=== PATIENT | female | born 1970 ===

== ENCOUNTER 2025-04-21 11:07 | Outpatient (AMB) | payer OTHER, SELFPAY ==
--- OUTSIDE RECORDS SUMMARY | 2024-12-05 04:15 | XMS_ITS | Continuity of Care Document ---
Author Organization [facility] Address [address] [place] [address] [address] [place] [address] Phone Care Team Providers Care Neurosurgery Research Director Name Role Phone Ambrose JOHNSTON, LASHONDA, BARNEY, Ignacio Unavailable U navailable Procedures Procedure Date Duplex Scan-extrem Veins; Comp- CT & [place] Advance Directives Directive Yes / No Effective Date File Name No Information Encounters Encounter Description Practice Location Reason(s) For Visit Diagnoses Date Provider Providers Copied on Encounter [facility], [address], [place], [id number], [place] tel:[phone] [facility] - [place] Pain in right legPain in left leg 5 Ambrose JOHNSTON, LASHONDA, BARNEY [place]. [address] [place] [address], [place], [place], [id number] , [place]. tel:[phone] Referring Provider: Zion Nelson MD J, [facility] [address], [address]. tel:[phone] Family History Family Member Type Diagnosis Age At Onset No Information Payers Payer name Insurance type Covered republican ID Scot liang(s) [facility] [id number] Social History Type Description Quantity Date Captured Comments Sex Female Smoking Status No Information Chief Complaint And Reason For Visit No Information Reason For Referral Reason For Referral No Information History Of Present Illness Encounter Date Complaint History Of Prese nt Illness No Information Functional Status Date Functional Assessmen t No Information Instructions Date Instruction Additional Infor mation No Information Assessments Type Assessment Date No Information Patient Care Teams Name Effective Dates (start - stop) Status Members No Information
--- NOTE | 2025-04-21 11:19 | HO.NEPHOV_ITS ---
Vital Signs 04/21/25 11:20 Height 5 ft 6 in Weight 172 lb BMI 27.8 BP 128/82 Blood Pressure Location Lt brachial Position Sitting Pulse 93 Pulse Source Pulse Oximeter Pulse Oximetry (%) 99 Oxygen Delivery Method Room Air Intake Visit Reasons: Ext Calculus of Kidney/Ureter,conf. Automatic Punch Press Operator Required: No Accompanied by: Self / Same As Patient Allergies No Known Allergies Allergy (Verified 04/21/25 11:23) Medication List - Last Reconciled 04/21/25 by Bautista Inman MD cholecalciferol (vitamin D3) 25 mcg PO DAILY gabapentin 100 mg PO TID hydrochlorothiazide 25 mg PO DAILY omeprazole 40 mg PO DAILY potassium citrate ER 10 mEq PO TID risankizumab-rzaa (Skyrizi) mg subcut .2xmonthly HPI Comments Details: The patient is a 54-year-old female presenting with nephrolithiasis. She has a 20-year history of kidney stones, which often do not pass naturally and require surgical intervention. The stones frequently become lodged in the urinary tract, leading to infections and necessitating hospitalization for removal via laser or stent placement. The patient was recently diagnosed with Crohn's disease following persistent diarrhea and abdominal discomfort post-cholecystectomy two years ago. A CT scan and colonoscopy revealed inflammation in the small intestine, leading to the diagnosis. She is currently managing the condition with medication, including self-administered injections. The patient underwent a cholecystectomy two years ago, after which she experi enced significant gastrointestinal symptoms, including diarrhea shortly after eating. Her primary care physician initially attributed these symptoms to the body's adjustment to the absence of the gallbladder. [facility] Medical History (Updated 04/21/25 @ 11:45 by Bautista Inman MD) Kidney stone UTI (urinary tract infection) Crohn's disease Sepsis Hydroureteronephrosis Review of Systems Const Denies fever(s) and Denies weight loss Card Denies chest pain Resp Denies cough and Denies hemoptysis GI Denies abdominal pain, Denies diarrhea and Denies nausea Musc Denies back pain Neuro Denies focal weakness Physical Exam Vital Signs: Last Vital Signs Pulse 93 04/21/25 11:20 BP 128/82 04/21/25 11:20 Pulse Ox 99 04/21/25 11:20 Oxygen Delivery Method Room Air 04/21/25 11:20 BMI result Body Mass Index 27.8 Comfortable Neck supple no JVD. Lungs entry equal no rales. Heart S1-S2 heard no gallop or rub. Abdomen soft nontender. Neuro alert awake oriented. No asterixis. Extremities no edema. Results Reviewed Results Reviewed: All results reviewed Twenty-four urine collection reviewed Volume 2400 cc. Sodium excretion 338. Mild hypercalciuria Assessment & Plan Assessment & Plan (1) Kidney stone: Code(s): N20.0 - Calculus of kidney Category: Medical Plan 1. Nephrolithiasis recurrent renal stones. She needs metabolic workup and I have initiated the same. - Continue monitoring sodium and calcium intake, aiming for a low sodium diet of 2000 mg per day. - Maintain high fluid intake to ensure urine output of at least 2 liters per day. - Avoid black tea and limit red meat consumption to reduce urine acidity. - Follow up in three weeks with repeat 24-hour urine collection to assess sodium, calcium, and oxalate levels. 2. Crohn's Disease - Continue current medication regimen, including self-administered injections. - Monitor symptoms and report any exacerbations to the healthcare provider. Orders: Orders Sodium, 24Hr Urine Group 2 Weeks N20.0 - Calculus of kidney Creatinine, 24 Hr Group 2 Weeks N20.0 - Calculus of kidney Oxalate, 24 Hr 2 Weeks N20.0 - Calculus of kidney Citric Acid 24hr Urine 2 Weeks N20.0 - Calculus of kidney Calcium, 24 Hr Ur 2 Weeks N20.0 - Calculus of kidney Uric Acid, 24Hr Urine Group 2 Weeks N20.0 - Calculus of kidney Parathyroid Hormone Intact 2 Weeks N20.0 - Calculus of kidney Phosphorus 2 Weeks N20.0 - Calculus of kidney Uric Acid 2 Weeks N20.0 - Calculus of kidney Patient Instructions: - Follow a low sodium diet, aiming for less than 2000 mg per day. - Drink plenty of water to produce at least 2 liters of urine daily. - Avoid black tea and limit red meat to reduce urine acidity. - Continue current medications and report any worsening symptoms. - Return for follow-up in three weeks with completed 24-hour urine collection. Coding Level of Care Code New Pt Level 4 (59708) Diagnoses Kidney stone N20.0
[2025-04-21 11:20] VITALS: BP 128/82; PULSE 93; O2SAT 99; BMI 27.8
--- OUTSIDE RECORDS SUMMARY | 2025-04-21 12:39 | XMS_ITS | Encounter Summary ---
Author Organization [facility] Address [address] [place], [place] [id number] Phone Care Team Providers Care Lecturer Of Portuguese Name Role Phone Zion Nelson MD Primary Care Provid er Reason for Referral * Consultation (Within 2 weeks) - New Request Specialty Diagnoses / Procedures Referred By Contarmen t Referred To Contact Infectious Diseases Diagnoses Abnormal microbiological findings in specimens from digestive organs and abdominal cavity Zion Nelson MD [address] [address] Phone: tel: fax: [facility] [address] [place] [address] Phone: tel: Referral ID Status Reason Start Date Expiration Date V isits Requested Visits Authorized [id number] New Request 04/18/2025 04/18/2026 1 1 Encounter Details Date Type Department Care Team (Latest Contact Info) Description 04/18/2025 Transcribe Orders [facility] Infectious Diseases [address] [place] [address] Zion Nelson MD [address] [address] Abnormal microbiological findings in specimens from digestive organs and abdominal cavity (Primary Dx) Social History Tobacco Use Types Packs/Day Years Used Date Smoking Tobacco: Never Assessed Education Answer Date Recorded Are you interested in more education? Not on seth e 04/18/2025 Are you concerned about learning? Not on file 04/18/2025 No 04/18/2025 No 04/18/2025 Digital Access Answer Date Recorded No 04/18/2025 No 04/18/2025 Reliable internet access at home? Not on file 04/18/2025 Device with a working camera? Not on file Comments Unknown Sex and Gender Information Value Date Recorded Sex Assigned at Not on file Legal Sex Female 10:29 AM EDT Gender Identity Not on file Sexual Orientation Not on file documented as of this encounter Plan of Treatment Upcoming Encounters Date Type Department Care Team (Late st Contact Info) Description 07/13/2025 8:00 AM EST Office Visit [facility] Infectious Diseases [address] [place] [address] William Morris MD [address] [facility], [address]nd [place] [address] Scheduled Referrals Name Type Priority Associated Diagnoses Orde r Schedule Ambulatory referral to [facility] Infectious Disease Outpatient Referral Routine Abnormal microbiological findings in specimens from digestive organs and abdominal cavity Ordered: 04/18/2025 documented as of this encounter Visit Diagnoses Diagnosis Abnormal microbiological findings in specimens from digestive organs and abdominal cavity- Primary documented in this encounter Care Teams Lecturer Of Portuguese Relationship Specialty Start Date End Date Zion Nelson MD [address] [facility] [address] [place] [phone] PCP - General Pediatrics 04/13/25 documented as of this encounter Additional Source Comments The information contained in this document represents components of the legal health record. It is not the complete legal health record.[facility]
--- OUTSIDE RECORDS SUMMARY | 2025-04-21 12:40 | XMS_ITS | Encounter Summary ---
Author Organization [facility], Address [address] [place] [address] Phone Care Team Providers Care Community Development Director Name Role Phone Zion Nelson MD Primary Care Provider [phone] Encounter Details Date Type Department Care Team (Late st Contact Info) Description 12/04/2021 Documentation Only [facility], [address] [address] Aki Matute MD [address] [place] [address] Social History Tobacco Use Types Packs/Day Years Used Date Smoking Tobacco: Never Smokeless Tobacco: Never Comments Unknown Sex and Gender Information Value Date Recorded Sex Assigned at Not on file Legal Sex Female 2:55 PM EST Gender Identity Not on file Sexual Orientation Not on file documented as of this encounter Plan of Treatment Not on file documented as of this encounter Visit Diagnoses Not on filedocumented in this encounter Care Teams Community Development Director Relationship Specialty Start Date End Date Zion Nelson MD [address] [facility] [address] [place], [place] PCP - General Internal Medicine 05/16/20 documented as of this encounter
--- OUTSIDE RECORDS SUMMARY | 2025-04-21 12:40 | XMS_ITS | Encounter Summary ---
Author Organization [facility], Address [address] [place] [address] Phone Care Team Providers Care Ophthalmic Technologist Name Role Phone Zion Nelson MD Primary Care Provider [phone] Encounter Details Date Type Department Care Team (Late st Contact Info) Description 08/22/2021 Documentation Only [facility], [address] [place] [address] Aki Matute MD [address] [place] [address] Social History Tobacco Use Types Packs/Day Years Used Date Smoking Tobacco: Never Assessed Comments Unknown Sex and Gender Information Value Date Recorded Sex Assigned at Not on file Legal Sex Female 2:55 PM EST Gender Identity Not on file Sexual Orientation Not on file documented as of this encounter Plan of Treatment Not on file documented as of this encounter Visit Diagnoses Not on filedocumented in this encounter Care Teams Ophthalmic Technologist Relationship Specialty Start Date End Date Zion Nelson MD [address] [facility] [address] [place], [place] PCP - General Internal Medicine 05/16/20 documented as of this encounter
--- OUTSIDE RECORDS SUMMARY | 2025-04-21 12:40 | XMS_ITS | Clinical Summary ---
Author Organization [facility] Address [address] [place] [address] Phone Care Team Providers Care Human Resources Operations Specialist Name Role Phone Zion Nelson MD Primary Care Provider Allergies Active Allergy Reactions Criticality Noted Date Comments Allergies Not On File Unknown 09/02/2012 Medications potassium citrate (UROCIT-K) 10 mEq (1,080 mg) CR tablet TAKE 2 TABS BY MOUTH DAILY 4 Active omeprazole (PriLOSEC) [address] capsule Take 1 capsule (40 mg total) by mouth 1 (one) time each day. Active naproxen (NAPROSYN) 500 mg tablet TAKE 1 TABLET BY MOUTH TWICE A DAY FOR 10 DAYS, FOR MUSCLE PAIN. 4 Active meloxicam (MOBIC) 15 mg tablet Take 1 tablet (15 mg total) by mouth 1 (one) time each day. 4 Active hydrocortisone (ANUSOL-HC) 2.5 % rectal cream APPLY SPARINGLY TO AFFECTED AREA 2 TO 4 TIMES A DAY 5 Active hydroCHLOROthia zide (HYDRODIURIL) 25 mg tablet Take 1 tablet (25 mg total) by mouth 1 (one) time each day. 3 Active cholecalciferol (VITAMIN D-3) 25 mcg (1,000 unit) capsule Take 1 capsule (1,000 Units total) by mouth 1 (one) time each day. Active Active Problems Problem Noted Date Diagnosed Date Gastroesophageal reflux disease without esophagi tis 09/09/2024 Bursitis 09/09/2024 Encounters Date Type Department Care Team Description 04/21/2025 Telephone Infectious Disease - [place] [address] [facility] [address] [place] [address] Mya Carty RN from Last 3 Months Surgical History Surgery Date Site/Laterality Comments COLONOSCOPY 05/22/2023 - 06/21/2023 [facility] (10 yr) CHOLECYSTECTOMY ESOPHAGOGASTRODUODENOSCOPY 05/22/2023 - 06/21/2023 unremarkable ([facility]) Social History Tobacco Use Types Packs/Day Years Used Date Smoking Tobacco: Never Tobacco Cessation:Counseling Given: Not Answered Alcohol Use Standard Drinks/Week Comments Not Currently 0 (1 standard drink = 0.6 oz pur e alcohol) Comments No Sex and Gender Information Value Date Recorded Sex Assigned at Not on file Legal Sex Female 2:59 AM EST Gender Identity Not on file Sexual Orientation Not on file Obstetrics History Para Term AB IAB SAB Ectopic Multiple Livin g Live Births 3 Last Filed Vital Signs Vital Sign Reading Time Taken Comments Blood Pressure 153/90 12/14/2024 2:23 PM EDT Pulse 85 12/14/2024 2:23 PM EDT Temperature 35.8 C (96.4 F) 12/14/2024 2:23 PM EDT Respiratory Rate - - Oxygen Saturation 98% 12/14/2024 2:23 PM EDT Inhaled Oxygen Concentration - - Weight 74.8 kg (165 lb) 12/14/2024 2:23 PM EDT Height 167.6 cm (5' 6 ) 09/09/2024 1:42 PM EDT Body Mass Index 26.63 09/09/2024 1:42 PM EDT Plan of Treatment Upcoming Encounters Date Type Department Care Team (Late st Contact Info) Description 05/27/2025 8:15 AM EST Appointment [facility] [address] [place] [address] Health Maintenance Due Date Last Done Comments Colorectal Cancer Screening: Colonoscopy 1972 Hepatitis A Vaccines (1 of 2 - Risk 2-dose series) 12/28/1991 Cervical Cancer Screening: Pap Smear 1993 Cholesterol Screening (Lipid Panel) 05/25/2022 HIV Screening 05/25/2022 Hepatitis C Screening 05/25/2022 Social Influencers of Health Screening 05/25/2022 RSV Immunization Adult Patients (1 - Risk 50-74 years 1-dose series) 2022 Depression Screening 06/22/2024 Hepatitis B Vaccines (2 of 2 - CpG 2-dose series) 10/13/2024 09/15/2024 Breast Cancer Screening 05/14/2026 05/14/20 24, 09/15/2022, 07/13/2021, Additional history exists DTaP,Tdap,and Td Vaccines (3 - Td or Tdap) 04/07/2029 04/07/2019, 10/16/2014 Pneumococcal Vaccine: 50+ Years Completed 09/15/2024 Zoster Vaccines Completed 01/03/2025, 09/15/2024 COVID-19 Vaccine Completed 03/30/2025, , 05/18/2021, Additional history exists Influenza Vaccine Completed 03/30/2025, , 07/16/2023, Additional history exists HIB Vaccines Aged Out No longer eligi ble based on patient's age to complete this topic HPV Vaccines Aged Out No longer eligi ble based on patient's age to complete this topic IPV Vaccines Aged Out No longer eligi ble based on patient's age to complete this topic MMR Vaccines Aged Out No longer eligi ble based on patient's age to complete this topic Meningococcal ACWY Vaccine Aged Out N o longer eligible based on patient's age to complete this topic Meningococcal B Vaccine Aged Out No l onger eligible based on patient's age to complete this topic RSV Immunization Patients Under 20 months Aged Out No longer eligible based on patient's age to complete this topic Varicella Vaccines Aged Out No longer eligible based on patient's age to complete this topic Procedures Procedure Name Priority Date/Time Associated Diagnosis Comments OVA AND PARASITE EXAMINATION Routine 04/05/2025 8:05 AM EDT Regional enteritis of small intestine with large intestine (CMS/HCC V24, CMS/[facility] V28) GASTROINTESTINAL PATHOGENS BY PCR Routine 04/05/2025 8:05 AM EDT Regional enteritis of small intestine with large intestine (CMS/HCC V24, CMS/HCC V28) CULTURE BLOOD Routine 03/22/2025 2:24 PM EDT Regional enteritis of small intestine with large intestine (CMS/[facility] V24, CMS/[facility] V28) CULTURE BLOOD Routine 01/20/2025 10:18 AM EDT Microscopic colitis, unspecified microscopic colitis type BLOOD PARASITE SMEAR Routine 01/20/2025 10:18 AM EDT Parasitosis MG MAMMO DIGITAL SCREENING W VAZQUEZ BILAT Routine 05/14/2024 8:38 AM EST Visit for screening mammogram from Last 3 Months or Most Recently Relevant to Health Maintenance Results * Gastrointestinal pathogens molecular study (04/05/2025 8:05 AM EDT) Campylobacter Detection by PCR Not Detected Not Detected LAB MICROBIOLOGY METHOD 5 10:30 AM EDT [facility] Plesiomonas shigelloides Detection by PCR Not Detected Not Detected LAB MICROBIOLOGY METHOD 5 10:30 AM EDT [facility] Salmonella Detection by PCR Not Detected Not Detected LAB MICROBIOLOGY METHOD 5 10:30 AM EDT [facility] Vibrio Detection by PCR Not Detected Not Detected LAB MICROBIOLOGY METHOD 5 10:30 AM EDT [facility] Vibrio cholerae Detection by PCR Not Detected Not Detected LAB MICROBIOLOGY METHOD 5 10:30 AM EDT [facility] Yersinia enterocolitica Detection by PCR Not Detected Not Detected LAB MICROBIOLOGY METHOD 5 10:30 AM EDT [facility] Enteroaggregative E coli EAEC Detection by PCR Not Detected Not Detected LAB MICROBIOLOGY METHOD 5 10:30 AM EDT [facility] Enteropathogenic E coli EPEC Detection Not Detected Not Detected LAB MICROBIOLOGY METHOD 5 10:30 AM EDT [facility] Enterotoxigenic E coli ETEC LTST Detection Not Detected Not Detected LAB MICROBIOLOGY METHOD 5 10:30 AM EDT [facility] Shiga-like toxin producing E coli STEC STX1 STX2 Det Not Detected Not Detected LAB MICROBIOLOGY METHOD 5 10:30 AM EDT [facility] Shigella Enteroinvasive E coli EIEC Detection Not Detected Not Detected LAB MICROBIOLOGY METHOD 5 10:30 AM EDT [facility] Cryptosporidium Detection by PCR Not Detected Not Detected LAB MICROBIOLOGY METHOD 5 10:30 AM EDT [facility] Cyclospora cayetanensis Detection by PCR Not Detected Not Detected LAB MICROBIOLOGY METHOD 5 10:30 AM EDT [facility] Entamoeba histolytica Detection by PCR Not Detected Not Detected [facility] Giardia lamblia Detection by PCR Not Detected Not Detected LAB MICROBIOLOGY METHOD 5 10:30 AM [facility] Adenovirus F 40 41 Detection by PCR Not Detected Not Detected LAB MICROBIOLOGY METHOD 5 10:30 AM [facility] Astrovirus Detection by PCR Not Detected Not Detected LAB MICROBIOLOGY METHOD 5 10:30 AM [facility] Norovirus GI GII Detection by PCR Not Detected LAB MICROBIOLOGY METHOD 5 10:30 AM EDT [facility] Sapovirus Detection by PCR Not Detected Not Detected LAB MICROBIOLOGY METHOD 5 10:30 AM [facility] Rotavirus A Detection by PCR Not Detected Not Detected LAB MICROBIOLOGY METHOD 5 10:30 AM [facility] Stool Rectum structure / Unknown Non-blood Collection / Unknown 04/05/2025 8:05 AM EDT 04/05/2025 8:19 AM EDT [facility] - 04/05/2025 10:30 AM EDT PCR testing is much more sensitive than traditional techniques and allows for the detection of low numbers of stool pathogens. The clinical correlation of PCR results with the need for treatment and clinical outcomes has not been established. Therefore the results of PCR testing for stool pathogens must be taken into clinical context when making treatment decisions. This is a diagnostic test only, repeat testing for cure is not advised. You may consider infectious disease consult for additional guidance. Testing Performed by [facility] Radhika Lang MD LAB MICROBIOLOGY - GENERA L ORDERABLES Final Result Performing Organization Address [facility] Co de Phone Number [facility] [address] [place] [address], [place] [phone] * Ova and parasite examination (04/05/2025 8:05 AM EDT) Ova and Parasite No Ova or Parasite seen. 04/11/2025 11:50 AM EDT [facility] Stool Stool / Unknown Non-blood Collection / Unknown 04/05/2025 8:05 AM EDT 04/05/2025 8:19 AM EDT Narrative [facility] - 04/11/2025 11:50 AM EDT Special test request required for Coccidia and Microsporidia. Radhika Lang MD LAB MICROBIOLOGY - GENERA L ORDERABLES Final Result Performing Organization Address [facility] de Phone Number [facility] [address] [place] [address], [place] [phone] * Culture blood (03/22/2025 2:24 PM EDT) Only the most recent of2 resultswithin the time period is included. Culture, Blood No growth at 5 days LAB MICROBIOLOGY METHOD 03/27/2025 4:01 PM EDT [facility] Blood Venous blood specimen / Unknown Venipuncture / Unknown 03/22/2025 2:24 PM EDT 03/22/2025 3:24 PM EDT Radhika Lang MD LAB MICROBIOLOGY - GENERA L ORDERABLES Final Result Performing Organization Address [facility]/ZIP Co de Phone Number [facility] [address] [place] [address], [place] [phone] * Blood parasite smear (01/20/2025 10:18 AM EDT) Preliminary Thin Smear No Parasite Seen No Parasite Seen 01/21/2025 10:42 AM EDT [facility] Thick Smear No Parasite Seen No Parasite Seen 01/21/2025 10:42 AM EDT [facility] Comment:This is an appended report. These results have been appended to a previously preliminary verified report. Blood Venous blood specimen / Unknown Venipuncture / Unknown 01/20/2025 10:18 AM EDT 01/20/2025 11:32 AM EDT Karma Meza MD LAB MICROBIOLOGY - GENERAL ORDER ALISSA Final Result Performing Organization Address [facility] Co de Phone Number [facility] [address] [place] [address], * MG Mammo Digital Screening w Vazquez bilat (05/14/2024 8:38 AM EST) Anatomical Region Laterality Modality Breast Bilateral Mammography 05/16/2024 10:2 6 AM EST Impressions 05/16/2024 10:28 AM EST Stable mammographic appearance of the breasts. No evidence of malignancy is seen. A negative mammogram in the presence of a clinically suspicious palpable abnormality does not preclude the possibility of malignancy or alter the indications for biopsy. BI-RADS CATEGORY: 2 - BENIGN RECOMMENDATION: Screening bilateral mammogram is recommended in 1 year. Mammo Location: [facility], [address] [place] [address], [id number], . -------- FINAL REPORT -------- Dictated By: Nallely Craig Dictated Date: 05/16/2024 10:26 ET Assigned Physician: Nallely Craig Reviewed and Electronically Signed By: Nallely Craig Signed Date: 05/16/2024 10:28 ET Workstation ID: [id number] Transcribed By: Self Edit Transcribed Date: 05/16/2024 10:26 ET Narrative 05/16/2024 10:28 AM EST HISTORY: Screening. Right breast biopsy in 2004, pathology benign. COMPARISON: 09/13/22, 07/13/21, 07/24/18 TECHNIQUE: Bilateral digital breast tomosynthesis was performed in the CC and MLO projections. Computer aided detection with [employer] AI 3D 3.1 was employed. BREAST DENSITY: B - There are scattered areas of fibroglandular density. FINDINGS: No suspicious masses, grouped microcalcifications, or areas of architectural distortion are seen. There are rare benign appearing microcalcifications, unchanged from the previous studies. The skin and vascularity are unremarkable. Procedure Note Nallely Craig MD - 05/16/2024 HISTORY: Screening. Right breast biopsy in 2004, pathology benign. COMPARISON: 09/13/22, 07/13/21, 07/24/18 TECHNIQUE: Bilateral digital breast tomosynthesis was performed in the CCand MLO projections. Computer aided detection with iCAD ProFound AI 3D 3.1was employed. BREAST DENSITY: B - There are scattered areas of fibroglandular density. FINDINGS: No suspicious masses, grouped microcalcifications, or areas ofarchitectural distortion are seen. There are rare benign appearingmicrocalcifications, unchanged from the previous studies. The skin andvascularity are unremarkable. IMPRESSION: Stable mammographic appearance of the breasts. No evidence of malignancyis seen. A negative mammogram in the presence of a clinically suspicious palpableabnormality does not preclude the possibility of malignancy or alter theindications for biopsy. BI-RADS CATEGORY: 2 - BENIGN RECOMMENDATION: Screening bilateral mammogram is recommended in 1 year. Mammo Location: [facility], [address] [place] [address], [address], . -------- FINAL REPORT -------- Dictated By: Nallely Craig Dictated Date: 05/16/2024 10:26 ET Assigned Physician: Nallely Craig Reviewed and Electronically Signed By: Nallely Craig Signed Date: 05/16/2024 10:28 ET Workstation ID: [id number] Transcribed By: Self Edit Transcribed Date: 05/16/2024 10:26 ET Zion Nelson MD IMG BI PROCEDURES Final Res ult from Last 3 Months or Most Recently Relevant to Health Maintenance Insurance [facility] Care Teams Human Resources Operations Specialist Relationship Specialty Start Date End Date Zion Nelson MD [facility] [address] PCP - General Internal Medicine 01/20/25
--- OUTSIDE RECORDS SUMMARY | 2025-04-21 12:40 | XMS_ITS | Encounter Summary ---
Author Organization [facility], Address [address] [place] [address] Phone Care Team Providers Care Electrician Marine Name Role Phone Zion Nelson MD Primary Care Provider [phone]- [phone] Encounter Details Date Type Department Care Team (Late st Contact Info) Description 12/04/2021 Documentation Only [facility], [address] [place] [address] Aki Matute MD [address] [facility] [address] [place] [address] Social History Tobacco Use Types Packs/Day Years [...] on filedocumented in this encounter Care Teams Electrician Marine Relationship Specialty Start Date End Date Zion Nelson MD [address] [facility] [address] [place], [place] PCP - General Internal Medicine 05/16/20 documented as of this encounter
--- OUTSIDE RECORDS SUMMARY | 2025-04-21 12:40 | XMS_ITS | Encounter Summary ---
Author Organization [facility], Address [address] [place] [address] Phone Care Team Providers Care Senior Database Programmer Name Role Phone Zion Nelson MD Primary Care Provider [phone]- [phone] Encounter Details Date Type Department Care Team (Late st Contact Info) Description 08/22/2021 Documentation Only [facility], [address] [place] [address] Aki Matute MD [address] [place] [address] Social History Tobacco Use Types Packs/Day Years [...] on filedocumented in this encounter Care Teams Senior Database Programmer Relationship Specialty Start Date End Date Zion Nelson MD [address] [facility] [address] [place], [place] PCP - General Internal Medicine 05/16/20 documented as of this encounter
--- OUTSIDE RECORDS SUMMARY | 2025-04-21 12:40 | XMS_ITS | Encounter Summary ---
Author Organization [facility] Address [address] [place] [address] Phone Care Team Providers Care Salvage Mend Worker Name Role Phone Zion Nelson MD Primary Care Provider [phone]- [phone] Encounter Details Date Type Department Care Team ([facility] st Contact Info) Description 11/13/2023 Documentation Only [facility], [address] [place] [address] Nadir [place], [place] [address] [place] [address] Social History Tobacco Use Types Packs/Day Years [...] on filedocumented in this encounter Care Teams Salvage Mend Worker Relationship Specialty Start Date End Date Zion Nelson MD [address] [facility] [address] [place], [place] PCP - General Internal Medicine 05/16/20 documented as of this encounter
--- OUTSIDE RECORDS SUMMARY | 2025-04-21 12:40 | XMS_ITS | Encounter Summary ---
Author Organization [facility], Address [address] [place] [address] Phone Care Team Providers Care Child Welfare Consultant Name Role Phone Zion Nelson MD Primary Care Provider [phone]- [phone] Encounter Details Date Type Department Care Team (Late st Contact Info) Description 01/13/2023 Documentation Only [facility], [address] [place] [address] Aki Matute MD [address] [facility] [place] [address] Social History Tobacco Use Types Packs/Day Years [...] on filedocumented in this encounter Care Teams Child Welfare Consultant Relationship Specialty Start Date End Date Zion Nelson MD [address] [facility] [address] [place], [place] PCP - General Internal Medicine 05/16/20 documented as of this encounter
--- OUTSIDE RECORDS SUMMARY | 2025-04-21 12:40 | XMS_ITS | Data Portability ---
Author Organization [facility], Main Office Address [address] [facility] [address] [place] [id number] Care Team Providers Care Waste Baler Name Role Phone KAMILLE NELSON Primary Care Provider JUAN DIEGO BLOOD Mountain Bike Guide GRACIELA SCOTT Piggyback Clerk CLAYTON LUA Urologist JAMES VERDIN Urologist CLAUDIA MAHAJAN Referring Provider Assessment No assessment recorded. Plan of Treatment Reminders Order Date Submit Date Provider Last Modified By Organization Details Last Modified Time Details Appointments PE EST 2025 10:00A M Kamille jauregui MD Not available Not available Not available Lab CBC w/ auto diff 2024 025 [email or web address] [facility] (Centralized Electronic Ordering - All Locations), Patient Can Go To The Location Of Their Choice, 02/07/2025 16:40:12 iron + TIBC + ferrit in, serum 2024 025 [email or web address] [facility] (Centralized Electronic Ordering - All Locations), Patient Can Go To The Location Of Their Choice, 02/07/2025 16:40:12 cobala min and folate panel, serum 2024 025 [email or web address] [facility] (Centralized Electronic Ordering - All Locations), Patient Can Go To The Location Of Their Choice, [id number] 02/07/2025 16:40:12 iron + total iron-b inding capaci ty (TIBC) , serum 2024 025 [email or web address] [facility] (Centralized Electronic Ordering - All Locations), Patient Can Go To The Location Of Their Choice, [address] 02/07/2025 16:40:12 unlist ed lab - GI parasi hipolito, stool, PCR 2024 025 CRISTOFER [facility] (Centralized Electronic Ordering - All Locations), Patient Can Go To The Location Of Their Choice, [id number] 12/06/2024 20:06:01 Referral nephro logist referr jaleel shetty kidney stones increa sing in freque ncy despit e being on meds. 2024 025 [facility] Nephrology - [address] Rojas, [place], [address], 04/17/2025 11:41:59 gastro entero logist referr al 2024 [facility] Cezar Nugent, [address] [place] [address], [address], 12/29/2024 08:36:22 Procedures None record ed. Surgeries None record ed. Imaging MRI, brain, w/wo contra st - New onset of daily persis tent headac hes in adult >57 year old on immuno suppre ssant medica tion. MRI indica peter for r/o of mass. 2024 025 [facility] [address] [place], [address], 04/18/2025 13:56:34 XR, cervic al spine, 2 or 3 view - New daily persis tent headac hes. Obtain ing Xray of c spine to evalua te for possib le cervic ogenic etiolo gy 2024 025 [facility], [address] [place], [address], 04/17/2025 10:40:50 US, duplex , venous , lower extrem ity - Bilate ral leg edema, r/o DVT 2024 [address] [facility] Vein [facility], [address], [address], [place], [address], 12/06/2024 16:18:29 Medication Orders hydroc hlorot hiazid e 25 mg tablet 2024 025 [facility]armacy #[id number], [address] [facility] [place], [address], 04/13/2025 13:32:32 ferrou s sulfat e 325 mg (65 mg iron) tablet 2024 025 [facility] #[id number], [address] [facility] [place], [address], 02/07/2025 17:04:49 gabape ntin 100 mg capsul e 2024 025 [email or web address] s [facility]/Pharmacy #[id number], [address] [place], [address], 04/13/2025 13:10:30 Patient TargetsNo targets recorded. Patient Instructions Encounter Date Encounter Id Patient Instructions Last Modified By Organization Details Last Modified Time 12/22/2024 [id number] take gabapentin at night x 3 nights, then twice daily x 3 days, then 3 times daily [email or web address] Not available 12/22/2024 16:10:32 Follow up if no improvement or if symptoms worsen. [email or web address] Not available 12/22/2024 16:06:50 02/01/2025 [id number] I have reviewed the note and agree with the assessment and plan of care. [email or web address] Not available 02/01/2025 09:04:53 02/07/2025 [id number] kidney stone: care instructions [email or web address] Not available 02/07/2025 17:04:46 crohn's disease: care instructions [email or web address] Not available 02/07/2025 17:18:14 anemia: care instructions [email or web address] Not available 02/07/2025 16:40:13 At [facility] follow up visit, all current and discharge medications (OTC, herbal therapies, supplements) reviewed and reconciled with patient and or caregiver, including potential side effects, drug interactions, instructions, and the consequences of not taking medication. Reviewed potential barriers to medication adherence, such as side effects from medication or cost of medication. [email or web address] Not available 02/07/2025 15:51:32 04/13/2025 [id number] kidney stone: care instructions [email or web address] Not available 04/13/2025 13:32:31 Reason for Referral Head Waiter/Waitress Banquet Referral for Parasitic disease Referring Physician: Yovany Pineda, Internal Medicine, Encounter Date: 12/22/2024 Metal Wire Technician Referral for Ca lculus of kidney and ureter Chronic kidney stones increasing in frequency despite being on meds. Referring Physician: Kamille Nelson, Family Medicine, Encounter Date: 02/07/2025 Results Created Date Observation Date Name Description Value Unit Range Abnormal Flag Note LastModifiedBy Organization Detail LastModifiedTime 12/11/1912/09/2024 CULTU RE URINE culture, urine 10,00 0-49, 000 CFU/m L Mixed uroge nital perla , no uropa thoge ns prese nt. Sugge st repea t speci men if clini mariah indic ated. Not Available [facility] U/S Dept [address] [place], [address], 12/10/2024 11:09:21 12/11/19 25 12/10/2024 CULTU RE URINE .note SEE NOTE Origi nal Order ing Provi valentina: ISRAE L GOHOH O [facility] Labor atory - [address] [facility], [place] kong d, [place] [address] Not Available [facility] Dept [address] [facility], [address], 12/10/2024 11:09:21 01/26/20 25 01/20/2025 CULTU RE BLOOD culture, blood No growth at 5 days Not Available [facility] U/S Dept [address] [facility], [address], 01/25/2025 13:03:28 01/26/20 25 01/25/2025 CULTU RE BLOOD .note See Note Origi nal Order ing Provi valentina: GHASSAN ROD KAYLAN [facility] - Labor atory - [address] [facility], Hein diaiel d, [place] [facility] [place] [address] Not Available [facility] Dept [address] [place] [address] [place], [address], 01/25/2025 13:03:28 01/23/20 25 01/20/2025 CULTU RE BLOOD culture, blood No growth at 2 days Not Available [facility] [address] [place] [address] [place], [address], 01/22/2025 13:02:48 01/23/20 25 01/22/2025 CULTU RE BLOOD .note See Note Origi nal Order ing Provi valentina: GHASSAN ROD KAYLAN [facility] - Labor atory - [address] [facility], Michael kong d, [facility] [place] [address] Not Available [facility]/ Dept [address] [facility] [place], [address], 01/22/2025 13:02:48 01/22/20 25 01/20/2025 CULTU RE BLOOD culture, blood No growth at 24 hours Not Available [facility]/ Dept [address] [facility] [place], [address], 01/21/2025 13:03:21 01/22/20 25 01/21/2025 CULTU RE BLOOD .note See Note Origi nal Order ing Provi valentina: GHASSAN ROD KAYLAN [facility] - Labor atory - [address] [facility], Michael gfiel d, [facility] [place] [address] Not Available [facility] [address] [facility] [place], [address], 01/21/2025 13:03:21 01/21/20 25 01/20/2025 CULTU RE BLOOD .note See Note Origi nal Order ing Provi valentina: GHASSAN COELHOO KAYLAN [facility] - Labor atory - [address] [facility], Michael kong d, [facility] [place] [address] Not Available [facility]/S Dept [address] [place] [address] [place], [address], 01/20/2025 12:03:17 01/21/20 25 01/20/2025 CULTU RE BLOOD culture, blood Cultur e in progre ss Not Available [facility]/S Dept [address] [place] [address] [place], [address], 01/20/2025 12:03:17 03/27/20 25 03/22/2025 CULTU RE BLOOD culture, blood No growth at 5 days Not Available [facility]/ Dept [address] [place] [address] [place], [address], 03/27/2025 16:03:09 03/27/2003/27/2025 CULTU RE BLOOD .note See Note Origi nal Order ing Provi valentina: GHASSAN ROD KAYLAN [facility] - Labor atory - [address] [facility], Michael destiny jensen, [facility] [place] [address] Not Available [facility]/S Dept [address] [place] [address] [place], [address], 03/27/2025 16:03:09 03/24/2003/22/2025 CULTU RE BLOOD culture, blood No growth at 2 days Not Available [facility]/ Dept [address] [place] [address] [place], [address], 03/24/2025 16:02:18 03/24/20 25 03/24/2025 CULTU RE BLOOD .note See Note Origi nal Order ing Provi valentina: GHASSAN Upton MARTO KAYLAN [facility] - Labor atory - [address] [facility], Michael kong d, [facility] [place] [address] Not Available [facility]/S Dept [address] [place], [address], 03/24/2025 16:02:18 03/23/20 25 03/22/2025 CULTU RE BLOOD culture, blood No growth at 24 hours Not Available [facility] [address] [place] [address], [address], 03/23/2025 16:04:09 03/23/2003/23/2025 CULTU RE BLOOD .note See Note Origi nal Order ing Provi valentina: GHASSAN FALCON T MARTO KAYLAN [facility] - Labor atory - [address] [facility], [facility], [facility] [place] [address] Not Available [facility]/ Dept [address] [place] [address], [address], 03/23/2025 16:04:09 03/22/20 25 03/22/2025 CULTU RE BLOOD .note See Note Origi nal Order ing Provi valentina: GHASSAN COELHOO KAYLAN [facility] [address] [facility], [facility] [place] [address] Not Available [facility]/ Dept [address] [place] [address], [address], 03/22/2025 15:35:35 03/22/20 25 03/22/2025 CULTU RE BLOOD culture, blood Cultur e in progre ss Not Available [facility]/S Dept [address] [place], [address], 03/22/2025 15:35:35 04/05/20 25 04/05/2025 GASTR RIGO Reyes PATHO GENS MOLEC ULAR STUDY .note See Note Origi nal Order ing Provi valentina: GHASSAN IA T MARTO KAYLAN [facility] - Labor atory - [address], Sprin gfiel d, [place] [address] Not Available [facility] U/S Dept [address] [place] [address], [address], 04/05/2025 10:33:06 04/05/2004/05/2025 GASTR OINTE ELAINE L PATHO GENS MOLEC ULAR STUDY campylobacte r detection by PCR Not Detect ed not detect ed Not Available [facility] [address] [place] [address], [address], 04/05/2025 10:33:06 04/05/2004/05/2025 GASTR OINTE ELAINE L PATHO GENS MOLEC ULAR STUDY plesiomonas shigelloides detection by PCR Not Detect ed not detect ed Not Available [facility] [address] [place] [address], [address], 04/05/2025 10:33:06 04/05/2004/05/2025 GASTR OINTE ELAINE L PATHO GENS MOLEC ULAR STUDY salmonella detection by PCR Not Detect ed not detect ed Not Available [facility] [address] [place] [address], [address], 04/05/2025 10:33:06 04/05/2004/05/2025 GASTR OINTE ELAINE L PATHO GENS MOLEC ULAR STUDY vibrio detection by PCR Not Detect ed not detect ed Not Available [facility] [address] [place] [address], [address], 04/05/2025 10:33:06 04/05/2004/05/2025 GASTR OINTE ELAINE L PATHO GENS MOLEC ULAR STUDY vibrio cholerae detection by PCR Not Detect ed not detect ed Not Available [facility] [address] [place] [address], [address], 04/05/2025 10:33:06 04/05/20 25 04/05/2025 GASTR OINTE ELAINE L PATHO GENS MOLEC ULAR STUDY yersinia enterocoliti ca detection by PCR Not Detect ed not detect ed Not Available [facility] Dept [address] [place] [address], [address], 04/05/2025 10:33:06 04/05/2004/05/2025 GASTR OINTE ELAINE L PATHO GENS MOLEC ULAR STUDY enteroaggreg ative E coli eaec detection by PCR Not Detect ed not detect ed Not Available [facility] Dept [address] [place] [address], [address], 04/05/2025 10:33:06 04/05/20 25 04/05/2025 GASTR OINTE ELAINE L PATHO GENS MOLEC ULAR STUDY enteropathog enic E coli epec detection Not Detect ed not detect ed Not Available [facility] Dept [address] [place] [address], [address], 04/05/2025 10:33:06 04/05/2004/05/2025 GASTR OINTE ELAINE L PATHO GENS MOLEC ULAR STUDY enterotoxige abdi E coli etec ltst detection Not Detect ed not detect ed Not Available [facility] Dept [address] [place], [address], 04/05/2025 10:33:06 04/05/20 25 04/05/2025 GASTR OINTE ELAINE L PATHO GENS MOLEC ULAR STUDY shiga-like toxin producing E coli stec stx1 stx2 det Not Detect ed not detect ed Not Available [facility]/S Dept [address] [place] [address], [address], 04/05/2025 10:33:06 04/05/20 25 04/05/2025 GASTR OINTE ELAINE L PATHO GENS MOLEC ULAR STUDY shigella enteroinvasi ve E coli eiec detection Not Detect ed not detect ed Not Available [facility] [address] [place] [address], [address], 04/05/2025 10:33:06 04/05/20 25 04/05/2025 GASTR OINTE ELAINE L PATHO GENS MOLEC ULAR STUDY cryptosporid ium detection by PCR Not Detect ed not detect ed Not Available [facility] [address] [place] [address], [address], 04/05/2025 10:33:06 04/05/2004/05/2025 GASTR OINTE ELAINE L PATHO GENS MOLEC ULAR STUDY cyclospora cayetanensis detection by PCR Not Detect ed not detect ed Not Available [facility]/S [address], [address], 04/05/2025 10:33:06 04/05/20 25 04/05/2025 GASTR OINTE ELAINE L PATHO GENS MOLEC ULAR STUDY entamoeba histolytica detection by PCR Not Detect ed not detect ed Not Available [facility] [address] [place] [address], [address], 04/05/2025 10:33:06 04/05/2004/05/2025 GASTR OINTE ELAINE L PATHO GENS MOLEC ULAR STUDY giardia lamblia detection by PCR Not Detect ed not detect ed Not Available [facility] [address] [place] [address], [address], 04/05/2025 10:33:06 04/05/20 25 04/05/2025 GASTR OINTE ELAINE L PATHO GENS MOLEC ULAR STUDY adenovirus F 40 41 detection by PCR Not Detect ed not detect ed Not Available [facility] [address] [place] [address], [address], 04/05/2025 10:33:06 04/05/2004/05/2025 GASTR OINTE ELAINE L PATHO GENS MOLEC ULAR STUDY astrovirus detection by PCR Not Detect ed not detect ed Not Available [facility] [address] [place], [place] [address]mar[place], [address], 04/05/2025 10:33:06 04/05/20 25 04/05/2025 GASTR OINTE ELAINE L PATHO GENS MOLEC ULAR STUDY norovirus GI gii detection by PCR Not Detect ed Not Available [facility] [address] [place] [address], [address], 04/05/2025 10:33:06 04/05/20 25 04/05/2025 GASTR OINTE ELAINE L PATHO GENS MOLEC ULAR STUDY sapovirus detection by PCR Not Detect ed not detect ed Not Available [facility] [address] [place] [address], [address], 04/05/2025 10:33:06 04/05/2004/05/2025 GASTR OINTE ELAINE L PATHO GENS MOLEC ULAR STUDY rotavirus A detection by PCR Not Detect ed not detect ed Not Available [facility] [address] [place] [address], [address], 04/05/2025 10:33:06 04/11/20 25 04/05/2025 OVA AND SIMBA ITE EXAMI NATIO N ova and parasite No Ova or Parasi te seen. Not Available [facility] [address] [place] [address] [place], [address], 04/11/2025 11:52:24 04/11/20 25 04/11/2025 OVA AND SIMBA ITE EXAMI NATIO N .note See Note Origi nal Order ing Provi valentina: GHASSAN TERRIE T MARTO KAYLAN [facility] - Labor [facility]ory - [address] [facility], [facility] destiny d, [facility] [place] [address] Not Available [facility]/S Dept [address] [place] [address], [address], 04/11/2025 11:52:24 11/09/19 25 11/08/2024 OVA AND SIMBA ITE EXAMI NATIO N .note See Note Origi nal Order ing Provi valentina: GHASSAN FLACON T MARTO KAYLAN [facility] - Labor atory - [address] [facility], Michael kong d, [facility] [place] [address] Not Available [facility]/S Dept [address] [place] [address], [address], 11/10/2024 15:16:48 11/09/19 25 11/08/2024 OVA AND SIMBA ITE EXAMI NATIO N ova and parasite No Ova or Parasi te seen. Not Available [facility]/S Dept [address] [place] [address], [address], 11/10/2024 15:16:48 11/09/19 25 11/08/2024 OVA AND SIMBA ITE EXAMI NATIO N .note See Note Origi nal Order ing Provi valentina: GHASSAN Upton MARTO KAYLAN [facility] - Labor atory - [address] [facility], [facility] d, [facility] [place] [address] Not Available [facility]/S Dept [address] [place] [address], [address], 11/21/2024 11:57:54 11/09/19 25 11/11/2024 OVA AND SIMBA ITE EXAMI NATIO N ova and parasite No Ova or Parasi te seen. Not Available [facility]/S Dept [address] [place] [address], [address], 11/21/2024 11:57:54 11/09/19 25 11/08/2024 OVA AND SIMBA ITE EXAMI NATIO N .note See Note Origi nal Order ing Provi valentina: GHASSAN TERRIE T LAQUITAO KAYLAN [facility] - Labor atory - [address], [place], [place] [address] Not Available [facility] U/S Dept [address] [place], [address], 11/22/2024 13:35:46 11/09/19 25 11/17/2024 OVA AND SIMBA ITE EXAMI NATIO N ova and parasite No Ova or Parasi te seen. Not Available [facility] U/S Dept [address] [facility], [place], [address], 11/22/2024 13:35:46 12/06/19 25 12/06/2024 GI SIMBA ITES, STOOL , PCR cryptosporid ium NOT DETECT ED not detect ed Not Available [facility] ([facility]) [address] [place], [address], 12/06/2024 20:06:01 12/06/19 25 12/06/2024 GI SIMBA ITES, STOOL , PCR entamoeba histolytica NOT DETECT ED not detect ed Not Available [facility] ([facility]) [address] [place], [address], 12/06/2024 20:06:01 12/06/19 25 12/06/2024 GI SIMBA ITES, STOOL , PCR giardia lamblia NOT DETECT ED not detect ed Not Available [facility] ([facility]) [address] [place], [address], 12/06/2024 20:06:01 12/09/19 25 12/12/2024 STRON GYLOI FARIHA IGG ANTIB GODWIN strongyloide s IgG antibody NEGATI VE negati ve Not Available [facility] ([facility]) [address] [place], [address], 12/12/2024 14:05:50 12/15/19 25 12/22/2024 CBC WITH AUTO DIFFE RENTI AL WBC 8.7 K/mcL 4.8-10 .8 Not Available [facility]/S Dept [facility] [place], [address], 12/22/2024 16:56:28 12/15/1912/22/2024 CBC WITH AUTO DIFFE RENTI AL RBC 4.20 M/mcL 3.80-4 .80 Not Available [facility] [address], [place], [address], 12/22/2024 16:56:28 12/15/1912/22/2024 CBC WITH AUTO DIFFE RENTI AL hemoglobin 12.6 g/dL 11.5-1 6.0 Not Available [facility] [address] [place] [address] Pkwy, [place], [address], 12/22/2024 16:56:28 12/15/1912/22/2024 CBC WITH AUTO DIFFE RENTI AL hematocrit 40.3 % 35.0-4 7.0 Not Available [facility] [address], [place], [address], 12/22/2024 16:56:28 12/15/1912/22/2024 CBC WITH AUTO DIFFE RENTI AL MCV 95.3 fL 79.0-9 8.0 Not Available [facility] [address] [place], [place] [address], [place], [address], 12/22/2024 16:56:28 12/15/1912/22/2024 CBC WITH AUTO DIFFE RENTI AL MCH 29.8 pcg 27.0-3 2.0 Not Available [facility] [address] [place], [place] [address], [facility] [place], [address], 12/22/2024 16:56:28 12/15/1912/22/2024 CBC WITH AUTO DIFFE RENTI AL MCHC 31.3 g/dL 32.0-3 7.0 low Not Available [facility] [address] [place], [place] [address]y [facility] [place], [address], 12/22/2024 16:56:28 12/15/19 25 12/22/2024 CBC WITH AUTO DIFFE RENTI AL RDW 13.3 % 11.0-1 5.0 Not Available [facility]/S Dept [address] [place], [place] [address]y [facility] [place], [address], 12/22/2024 16:56:28 12/15/1912/22/2024 CBC WITH AUTO DIFFE RENTI AL platelets 518 K/mcL 130-40 0 high Not Available [facility] [address] [place] [address] [place], [address], 12/22/2024 16:56:28 12/15/1912/22/2024 CBC WITH AUTO DIFFE RENTI AL MPV 9.0 fL 7.0-11 .0 Not Available [facility] [address] [place], [place] [address], [address], 12/22/2024 16:56:28 12/15/1912/22/2024 CBC WITH AUTO DIFFE RENTI AL NRBC 0.0 % <1.0 Not Available [facility]S Dept [address] [place], [place] [address] [place], [address], 12/22/2024 16:56:28 12/15/1912/22/2024 CBC WITH AUTO DIFFE RENTI AL NRBC absolute 0.00 K/mcL <0.10 Not Available [facility] [address] [place], [place] [address] [place], [address], 12/22/2024 16:56:28 12/15/1912/22/2024 CBC WITH AUTO DIFFE RENTI AL neutrophils relative 60.8 % Not Available [facility] [address] [place] [address] [place], [address], 12/22/2024 16:56:28 12/15/19 25 12/22/2024 CBC WITH AUTO DIFFE RENTI AL lymphocytes relative 33.4 % Not Available [facility] [address] [place] [address] [place], [address], 12/22/2024 16:56:28 12/15/19 25 12/22/2024 CBC WITH AUTO DIFFE RENTI AL monocytes relative 4.0 % Not Available [facility] [address] [place] [address] [place], [address], 12/22/2024 16:56:28 12/15/19 25 12/22/2024 CBC WITH AUTO DIFFE RENTI AL eosinophils relative 0.8 % Not Available [facility] [address] [place] [address], [place], [address], 12/22/2024 16:56:28 12/15/19 25 12/22/2024 CBC WITH AUTO DIFFE RENTI AL basophils relative 0.5 % Not Available [facility] [address] [place] [address] [place], [address], 12/22/2024 16:56:28 12/15/19 25 12/22/2024 CBC WITH AUTO DIFFE RENTI AL immature granulocytes relative 0.5 % Not Available [facility] [address] [place] [address] [place], [address], 12/22/2024 16:56:28 12/15/19 25 12/22/2024 CBC WITH AUTO DIFFE RENTI AL neutrophils absolute 5.32 K/mcL 1.50-7 .00 Not Available [facility] [address] [place] [address], [place], [address], 12/22/2024 16:56:28 12/15/19 25 12/22/2024 CBC WITH AUTO DIFFE RENTI AL lymphocytes absolute 2.92 K/mcL 1.00-5 .00 Not Available [facility]/S Dept [address] [place], [place] [address]mar[place], [address], 12/22/2024 16:56:28 12/15/19 25 12/22/2024 CBC WITH AUTO DIFFE RENTI AL monocytes absolute 0.35 K/mcL 0.20-1 .00 Not Available [facility]/S Dept [address] [place] [address] [facility] [place], [address], 12/22/2024 16:56:28 12/15/19 25 12/22/2024 CBC WITH AUTO DIFFE RENTI AL eosinophils absolute 0.07 K/mcL 0.00-0 .50 Not Available [facility] Dept [address] [place] [address] [place], [address], 12/22/2024 16:56:28 12/15/19 25 12/22/2024 CBC WITH AUTO DIFFE RENTI AL basophils absolute 0.04 K/mcL 0.00-0 .20 Not Available [facility] Dept [address] [place] [address], [address], 12/22/2024 16:56:28 12/15/19 25 12/22/2024 CBC WITH AUTO DIFFE RENTI AL immature granulocytes absolute 0.04 K/mcL 0.00-0 .03 high Not Available [facility] Dept [address] [place] [address] [facility] [place], [address], 12/22/2024 16:56:28 12/15/19 25 12/22/2024 CBC WITH AUTO DIFFE RENTI AL note See Report high [facility], [address], [place], [place] [facility] [place] [address] Not Available [facility] Dept [address] [place] [address], [address], 12/22/2024 16:56:28 12/15/19 25 12/22/2024 BORRE STEPHANY BURGD ORFER I ANTIB GODWIN lyme Ab Negati ve negati ve No labor atory evide nce of infec tion with B. burgd orfer i (Lyme disea se). Negat alia resul ts may occur in patie nts recen tly infec peter (<=14 days) with B. burgd orfer i. If recen t infec tion is suspe cted, repea t testi ng on a new sampl e colle cted in 7-14 days is recom milan d. Not Available [facility]/S Dept [address] [place] [address], [address], 12/23/2024 11:28:08 12/15/19 25 12/22/2024 BORRE STEPHANY BURGD ORFER I ANTIB GODWIN note See Report [facility], [address], Michael kong d, [facility] [place] [address] Not Available [facility] Dept [address] [place] [address], [address], 12/23/2024 11:28:08 12/15/19 25 12/22/2024 STRON GYLOI FARIHA ANTIB GODWIN, IGG strongyloide s antibody 0.7 IV <=0.9 INTER PRETI VE INFOR MATIO N: Stron gyloi fariha Ab, IgG by ESTRELLITA 0.9 IV or less. ..... . Negat alia - No signi fican t level of Stron gyloi fariha IgG antib godwin detec peter. 1.0 IV... ..... ..... ...Eq uivoc al - The Stron gyloi fariha IgG antib godwin resul t is borde rline and there fore incon clusi ve. Recom mend retes ting the patie nt in 2-4 weeks , if clini mariah indic ated. 1.1 IV or great er ... Posit alia - IgG antib odies to Stron gyloi fariha detec peter, which may sugge st curre nt or past infec tion. False -posi tive resul ts may occur with prior expos ure to other helmi nth infec tions . Testi ng low-p reval ence popul ation s may also resul t in false -posi tive resul ts. Perfo rmed By: [facility] [address] [place] [address] Labor atory Direc tor: Nayla faith MD, PhD BELEM Sherman r: [id number] Not Available [facility] Dept [address] [place] [address], [address], 12/28/2024 01:01:44 12/15/19 25 12/22/2024 STRON GYLOI FARIHA ANTIB GODWIN, IGG note See Report [facility], [address], [place] d, [facility] [place] [address] Not Available [facility] Dept [address] [place] [address], [address], 12/28/2024 01:01:44 12/15/19 25 12/22/2024 BORRE STEPHANY SPECI ES MOLEC ULAR STUDY , QUALI TATIV E source BLOOD Not Available [facility] Dept [address] [place] [address], [address], 12/28/2024 02:02:38 12/15/19 25 12/22/2024 BORRE STEPHANY SPECI ES MOLEC ULAR STUDY , QUALI TATIV E borrelia spp DNA, ql, misc NOT DETECT ED The diagn ostic value of a negat alia Borre stephany speci es PCR resul t from whole blood has not been estab lishe d. A negat alia resul t does not exclu de Borre stephany infec tion becau se the yazan ntrat ion of the organ ism in blood tends to be low or non-e xiste nt in patie nts with Borre liosi s. REFER ENCE RANGE : NOT DETEC PETER This test was devel oped and its jacinto tical perfo rmanc e ezra cteri stics have been deter mined by [facility]. It has not been clear ed or appro flora by FDA. This assay has been valid ated pursu ant to the CLIA regul ation s and is used for clini shae purpo ses. For addit ional infor alpesh guevara refer to https ://ed ucati on.qu estdi [employer] t[employer]. com/f aq/fa q224 (This link is being provi ded for infor omar clarke/ educa will l purpo ses only. ) Test Perfo rmed at: [facility] [address] [address] [facility] [place] [address] I Omi grier MD, PhD Not Available [facility] Dept [address] [place] [address], [address], 12/28/2024 02:02:38 12/15/19 25 12/22/2024 ABIGAIL GROVER SPECI ES MOLEC ULAR STUDY , QUALI TATIV E note See Report [facility], [address], [facility] [place] [address] Not Available [facility] Dept [address] [place] [address], [address], 12/28/2024 02:02:38 12/15/19 25 12/14/2024 BLOOD SIMBA ITE SMEAR .note See Note Origi nal Order ing Provi valentina: BEATRIZ HERNANDEZ [facility] - Labor atory - [address], [place], [place] [address] Not Available [facility] Dept [address] [place] [address], [address], 01/21/2025 10:45:11 12/15/19 25 01/20/2025 BLOOD SIMBA ITE SMEAR preliminary thin smear No Parasi te Seen no parasi te seen Not Available [facility] Dept [address] [facility] [place], [address], 01/21/2025 10:45:11 12/15/19 25 01/20/2025 BLOOD SIMBA ITE SMEAR thick smear No Parasi te Seen no parasi te seen This is an appen ded repor t. These resul ts have been appen ded to a previ ously preli minar y verif ied repor t. Not Available [facility] Dept [address] [facility] [place], [address], 01/21/2025 10:45:11 12/15/19 25 12/14/2024 BLOOD SIMBA ITE SMEAR .note See Note Origi nal Order ing Provi valentina: BEATRIZ MAEA [facility] - Labor [facility] - [address], [place] kong d, [facility] [place] [address] Not Available [facility] Dept [address] [facility], [address], 01/20/2025 13:50:10 12/15/19 25 01/20/2025 BLOOD SIMBA ITE SMEAR preliminary thin smear No Parasi te Seen no parasi te seen Not Available [facility]/S Dept [address] [place], [address], 01/20/2025 13:50:10 12/07/19 25 12/05/2024 US, duple x, venou s, lower extre mity No observ ation record ed. [facility] [address], [address], 12/22/2024 15:55:03 04/17/20 25 04/15/2025 XR, cervi shae spine , 2 or 3 view No observ ation record ed. [facility] [address] [place], [address], 04/20/2025 12:06:52 Result Notes None recorded. Problems Name Problem SNOMED Code Status Onset Date Resolution Date Notes Provider Name and Address Organization Details Recorded Time Insomnia 924667048 Completed 10/16/2014 Kamille Nelson MD [address], [place], [address] , [facility] 6 18:23:13 Fatigue 29382754 Completed 10/16/2014 Kamille Nelson MD [address], [place], [address] , [facility] 6 18:23:14 Abnormal weight loss 762793984 Completed 10/16/2014 Kamille Nelson MD [address], [place], [address] , [facility] 6 18:23:14 Fever 778049711 Completed 10/16/2014 Kamille Nelson MD [address], [place], [address] , [facility] 6 18:23:14 Pain of hip region 69219438 Active Trochant yoan; injected at [facility] June 2024 Kamille Nelson MD [address], [place], [address] , [facility] 5 11:15:06 Pain of multiple joints 31459070 Active W/u being done by Dr Scott Not Available [facility] 4 09:45:54 Musculos keletal pain 586494983 Active Not Available [facility] 4 09:45:54 Pain of joint 52766715 Active Not Available [facility] 4 09:45:54 Gastroes ophageal reflux disease 647134286 Active Not Available [facility] 4 09:45:53 History of urinary stone 106501277 Completed 10/16/2014 Kamille Nelson MD [address], [place], [address] , [facility] 6 18:23:14 Tubercul osis screenin g Completed 201201/30/2014 RECORDED 05/25/20 13 12:48PM BY NAILA SMITH MA, NURSE VISIT Kamille Nelson MD [address] [facility] [address], [place], [address] , [facility] 6 18:23:14 Tubercul osis screenin g Completed 201201/03/2014 RECORDED 05/25/20 13 12:48PM BY NAILA SMITH MA, NURSE VISIT Kamille Nelson MD [address] [facility] [address], [place], [address] , [facility] 6 18:23:14 Follow-u p encounte r Completed 201301/30/2014 RECORDED 09/08/19 14 9:02AM BY SENG HECK ON/NOLBERTO Nelson MD [address], [place], [address] , [facility] 6 18:23:14 Screenin g for malignan t neoplasm of breast Completed 201301/30/2014 RECORDED 09/08/19 14 9:02AM BY SENG HECK ON/NOLBERTO Nelson MD [address], [place], [address] , [facility] 6 18:23:14 Follow-u p encounte r Completed 201301/03/2014 RECORDED 09/08/19 14 9:02AM BY SENG HECK ON/NOLBERTO Nelson MD [address] [facility] [address], [place], [address] , [facility] 6 18:23:14 Screenin g for malignan t neoplasm of breast Completed 201301/03/2014 RECORDED 09/08/19 14 9:02AM BY PORFIRIO CARCAMO I, ANNOTATI ON/ADDEN DUM Kamille Nelson MD [address], [place], [address] , [facility] 6 18:23:14 Patient status finding [id number] Completed 201301/20/2014 RECORDED 09/08/19 14 1:46PM BY PORFIRIO CARCAMO I, OFFICE VISIT Kamille Nelson MD [address], [place], [address] , [facility] 6 18:23:14 Adult health examinat ion Completed 201307/10/2014 RECORDED 09/08/19 14 1:46PM BY PORFIRIO CARCAMO I, OFFICE VISIT Kamille Nelson MD [address], [place], [address] , [facility] 6 18:23:14 Hydronep hrosis 44850847 Active 2014 followed by urology Not Available [facility] 4 09:45:54 Urolith Active 2014 followed by urology Not Available [facility] 4 09:45:54 Vitamin K below referenc e range 756083965 Active 2017 Not Available [facility] 4 09:45:53 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 4 13:47:53 Right flank pain 713542535 Completed 201704/10/2021 Yovany Pineda PA-C [address] [facility] [address], [place], [address] , [facility] 1 10:41:16 Calculus of kidney and ureter 283404977 Active 2017 This has been a recurren t problem since she was a late teenager . Strong fhx. Not Available [facility] 4 09:45:54 Right flank pain 294522406 Active 2017 Yusra Madrigal LPN null, [facility] 4 13:47:53 Prediabe hipolito 230074244 Active 2019 Not Available [facility] 4 09:45:54 Mixed hyperlip idemia 336993494 Active 2019 Not Available [facility] 4 09:45:54 History of calculus of kidney 056859774 Completed 201904/10/2021 Yovany Pineda PA-C [address] [facility] [address], [place], [address] , [facility] 1 13:47:17 History of calculus of kidney 014911244 Active 2019 Yodit Beltran MA null, [facility] 4 10:20:47 Hypergly cemia 10485071 Active 2019 Not Available [facility] 4 09:45:54 Vitamin D deficien cy 89457809 Active 2019 Not Available [facility] 4 09:45:54 Anti-nuc lear factor detected 879733227 Active 2020 Not Available [facility] 4 09:45:53 Multiple benign melanocy tic nevi 440178548 Active 2020 Not Available [facility] 4 09:45:54 Steatoti c liver disease 303069277 Active 2021 Seen on U/S. Not Available [facility] 4 09:45:53 Impaired glucose toleranc e 8976215 Active 2022 Not Available [facility] 4 09:45:54 Trochant yoan bursitis of right hip 35914850524 9100 Active 2022 Injected at [facility] June 2024. Kamille Nelson MD [address] [address], [place], [address] , [facility] 5 11:15:19 Diarrhea 46975872 Active 2024 Turner castro, [facility] 5 08:52:55 Feces: parasite present 781029084 Active 2024 Aaron Bolaños, [address] [address], [place], [address] , [facility] 5 14:58:36 Generali zed anxiety disorder 34604185 Active 2024 Aaron Bolaños, [address] [address] [address], [place], [address] , [facility] 5 15:09:39 Inflamma tory bowel disease 91197433 Active 2024 Aaron Bolaños, [address] [address], [place], [address] , [facility] 5 17:18:46 Pruritus ani 67880649 Active 2024 Aaron Bolaños, [address] [address], [place], [address] , [facility] 5 17:18:53 Crohn's disease 51316076 Active 2024 Kamille Nelson MD [address] [address], [place], [address] , [facility] 5 07:49:40 New daily persiste nt headache 26805784030 9105 Active 2024 HARSHAL Faith [employer]INTER [employer]CH[employer]IC [employer]ICE- [address] [address], [place], [address] , [facility] 13:30:14 Problem Notes None recorded. Procedures Surgical History Date Name Laterality Status Provider Name and Address Organization Details Recorded Time 10/12/19 25 Date of Last Colonoscopy completed Pearl Felipe [facility] 11/03/2024 11:39:22 10/12/19 25 Colonoscopy completed Jossie Shcreiber [facility] 10/17/2024 12:25:13 05/16/20 24 Most Recent Mammogram completed Jossie Schreiber [facility] 05/16/2024 11:32:18 06/11/20 23 Egd diagnostic brush wash completed Jossiewin Schreiber [facility] 06/11/2023 10:13:19 05/29/20 23 injection of hip joint completed Jossiewin Schreiber [facility] 06/02/2023 09:07:30 11/26/19 23 Laparoscopic cholecystectomy completed Naila miles [facility] 05/12/2023 11:45:27 07/13/19 22 Mammogram Diagnostic Bilateral completed Marcia Cano [facility] 08/02/2021 14:22:05 06/01/20 20 ureteroscopy completed Sasha Velasco [facility] 06/04/2020 08:45:21 12/22/19 20 cystoscopy completed Palak Mendieta [facility] 12/29/2019 10:34:15 12/22/19 20 retrograde pyelography with contrast completed Palak Mendieta [facility] 12/29/2019 10:34:29 12/22/19 20 insertion of stent into ureter completed Palakselam Mendieta [facility] 12/29/2019 10:34:51 07/01/19 19 Esw phy anes lat hmrl epcndl completed Shauna Berry [facility] 07/07/2018 10:52:21 12/25/19 16 Date of Last Pap Smear completed Shauna Berry [facility] 03/12/2017 11:36:05 09/06/19 15 Other completed Kamille Nelson MD [address] [facility], [place], [address], [facility] 09/13/2014 06:57:36 07/10/19 15 Other completed Kamille Nelson MD [address] [facility] [address] [facility], [place], [address], [facility] 07/11/2014 11:51:03 07/15/19 14 Other completed Kamille Nelson MD [address] [facility], [place], [address], [facility] 10/24/2014 06:58:06 06/22/19 11 total hysterectomy via vaginal approach completed Naila miles [place] [facility] 05/12/2023 11:45:45 07/11/19 06 Breast Surgery completed Kamille Nelson MD [address] [facility], [place], [address], [facility] 01/03/2019 15:54:09 cystoscopy completed Jossie Schreiber [facility] 06/11/2023 10:11:55 Imaging Results None recorded. Procedure Notes None recorded. Medical Equipment None Reported. Allergies Allergen ID Allergen Name Allergen Category Reaction Reaction Severity Criticality Documentation Date Start Date Code Code System Note Provider Name and Address Organization Details Recorded Time 5153 No known allergy (situatio n) Not available Not available Not available Not available 01/03/20142012 03625 6003 [facility]ED [facility] 3 11:46:02 No known drug allergies Medications Name Sig Start Date Stop Date Status Note LastModified by Organization Details LastModified Time vitamin d 05647 unit caps active Not Available Not Available No t Available omeprazol e 20 mg cpdr active Not Available Not Available Not Available ciproflox acin hcl 500 mg tabs active Not Available Not Available Not Available phenazopy ridine hcl 200 mg tabs active Not Available Not Available Not Available oxycodone /acetamin ophen 5-325 mg tabs active Not Available Not Available Not Available sulfameth oxazole/t rimethopr im ds 800-160 mg tabs active Not Available Not Available Not Available fluvirin 6004-9498 susp active Not Available Not Available Not Available fluconazo le 100 mg tabs active Not Available Not Available Not Available fluconazo le 100 mg tablet 1 TABLET DAILY 04/13 completed Not Available Not Available Not Available doxycycli ne hyclate 100 mg capsule Take 1 capsule twice a day by oral route for 7 days. 09/21 completed Not Available Not Available Not Available cefpodoxi me 200 mg tablet TAKE 1 TABLET BY MOUTH EVERY 12 HOURS FOR 4 DAYS 04/13 completed Not Available Not Available Not Available oxybutyni n chloride ER 10 mg tablet,ex tended release 24 hr TAKE 1 TABLET BY MOUTH EVERY DAY FOR 10 DAYS 12/02 completed Not Available Not Available Not Available ibuprofen 800 mg tablet Take 1 tablet every 8 hours by oral route for 10 days. active Not Available Not Available No t Available benzonata te 200 mg capsule TAKE 1 CAPSULE BY MOUTH THREE TIMES A DAY NEEDED FOR 10 DAYS 03/16 completed Not Available Not Available Not Available hydrocodo ne 5 mg-acetam inophen 325 mg tablet Take 1 tablet every 6-8 hours by oral route as needed for 3 days. 06/24 completed Not Available Not Available Not Available meloxicam 15 mg tablet TAKE 1 TABLET BY MOUTH EVERY DAY 07/05 completed Not Available Not Available Not Available ondansetr on HCl 4 mg tablet TAKE 1 TABLET BY MOUTH EVERY 8 HOURS NEEDED FOR NAUSEA AND VOMITING 04/13 completed Not Available Not Available Not Available metronida zole 500 mg tablet TAKE 1 TABLET BY MOUTH TWICE A DAY FOR 10 DAYS 12/02 completed Not Available Not Available Not Available thiamine HCl (vitamin B1) 250 mg tablet Take 250 mg by oral route. 01/08 completed Not Available Not Available Not Available ciproflox acin 500 mg tablet active Not Available Not Available No t Available peg-elect rolyte solution 420 gram oral solution USE DIRECTED 05/12 completed Not Available Not Available Not Available omeprazol e 40 mg capsule,d elayed release TAKE 1 CAPSULE BY MOUTH EVERY DAY 2024 active Not Available Not Available Not Avai lable tramadol 50 mg tablet TAKE 1 TABLET BY MOUTH EVERY 4 TO 6 HOURS NEEDED 04/13 completed Not Available Not Available Not Available hydrocort isone acetate 25 mg rectal supposito ry PLEASE SEE ATTACHED FOR DETAILED DIRECTIO NS 12/02 completed Not Available Not Available Not Available Celebrex 200 mg capsule Take 1 capsule every day by oral route as needed for 30 days, for joint pains. 12/02 completed Not Available Not Available Not Available potassium citrate-c itric acid 1,100 mg-334 mg/5 mL oral solution 10 milliequ ivalents by oral route. 12/12 completed Not Available Not Available Not Available oxycodone -acetamin ophen 5 mg-325 mg tablet Take by oral route for 5 days. 04/10 completed prn R flank pain Not Available Not Available Not Available hydrocort isone 2.5 % topical cream with perineal applicato r APPLY A THIN LAYER TO THE AFFECTED AREA(S) BY TOPICAL ROUTE 2-4 TIMESDAI LY 12/02 completed Not Available Not Available Not Available hydromorp guillermo 2 mg tablet EVERY FOUR HOURS NEEDED 01/03 completed Not Available Not Available Not Available lorazepam 0.5 mg tablet TAKE 1 TABLET BY MOUTH EVERY DAY DIRECTED FOR 14 DAYS active Not Available Not Available No t Available tamsulosi n 0.4 mg capsule TAKE 1 CAPSULE BY MOUTH EVERY DAY FOR 14 DAYS 04/13 completed Not Available Not Available Not Available phenazopy ridine 100 mg tablet TAKE 1 TABLET BY MOUTH THREE TIMES A DAY AFTER MEALS NEEDED FOR URINARY DISCOMFO T 04/13 completed Not Available Not Available Not Available potassium citrate ER 10 mEq (1,080 mg) tablet,ex tended release TAKE 2 TABS BY MOUTH DAILY active Not Available Not Available No t Available cephalexi n 500 mg capsule TAKE 1 CAPSULE BY MOUTH 4 TIMES A DAY,X12 DAYS 03/16 completed Not Available Not Available Not Available erythromy maricarmen 5 mg/gram (0.5 %) eye ointment APPLY 1 CM RIBBON INTO THE UPPER CONJUNCT IVAL SAC(S) IN THE RIGHT EYE BY OPHTHALM IC ROUTE 3 TIMES PER DAY for 7 days 10/17 completed Not Available Not Available Not Available ferrous sulfate 325 mg (65 mg iron) tablet TAKE 1 TABLET EVERY DAY BY ORAL ROUTE WITH MEAL(S) FOR 90 DAYS. active Not Available Not Available No t Available esomepraz ole magnesium 40 mg capsule,d elayed release TAKE 1 CAPSULE BY MOUTH EVERY DAY 05/23 completed Not Available Not Available Not Available albendazo le 200 mg tablet TAKE 2 TABLETS BY MOUTH EVERY 2 WEEKS 04/13 completed Not Available Not Available Not Available metronida zole 0.75 % topical cream APPLY A THIN LAYER TOPICALL Y TO THE AFFECTED AREA(S) 2 TIMES PER DAY IN THE MORNING AND EVENING active for rosacea Not Available Not Available Not Available gabapenti n 300 mg capsule 1 capsule 1 hour before bed 01/03 completed Not Available Not Available Not Available omeprazol e 20 mg capsule,d elayed release TAKE 1 CAPSULE BY MOUTH EVERY DAY 06/25 completed Not Available Not Available Not Available hydrochlo rothiazid e 25 mg tablet Take 1 tablet every day by oral route as directed for 30 days. 2024 active Not Available Not Available Not Avai labpedro mupirocin 2 % topical ointment Apply 1 applicat ion 3 times a day by topical route. 01/15 completed Not Available Not Available Not Available tamsulosi n ER 0.4 mg capsule,e xtended release DAILY 2013 active RECORDED 09/08/19 14 1:43PM BY PORFIRIO CARCAMO I, OFFICE VISIT;GINA MCWILLIAMS NCE S/P KIDNEY STONE Not Available Not Available Not Available gabapenti n 100 mg capsule TAKE 1 CAPSULE BY MOUTH THREE TIMES A DAY active if needed Not Available Not Available Not Available ergocalci ferol (vitamin D2) 1,250 mcg (50,000 unit) capsule Take 1 capsule every day by oral route for 84 days. 09/21 completed Not Available Not Available Not Available budesonid e DR - ER 3 mg capsule,d elayed,ex tended release TAKE 3 CAPS DAILY IN AM FOR 28 DAYS THEN DECREASE TO 2 CAPS DAILY X14 DAYS THEN 1 CAP DAILY X14 DAYS 10/17 completed Not Available Not Available Not Available Pepcid 20 mg tablet Take 20 mg by oral route. 01/08 completed Not Available Not Available Not Available levofloxa maricarmen 500 mg tablet Take 1 tablet every 24 hours by oral route as directed for 7 days. 01/03 completed Not Available Not Available Not Available oxybutyni n chloride 5 mg tablet TAKE 1 TABLET BY MOUTH THREE TIMES A DAY NEEDED FOR URINARY DISCOMFO RT 04/13 completed Not Available Not Available Not Available ondansetr on 4 mg disintegr ating tablet TAKE 1 TABLET BY MOUTH EVERY 8 HOURS NEEDED FOR NAUSEA AND VOMITING FOR 3 DAYS 12/02 completed Not Available Not Available Not Available colestipo l 1 gram tablet TAKE 2 TABLETS BY MOUTH EVERY DAY WITH A FULL GLASS OF WATER. OTHER MEDS 1 HR BEFORE OR 4 HRS AFTER 12/02 completed Not Available Not Available Not Available doxycycli ne hyclate 100 mg tablet TAKE 1 TABLET BY MOUTH TWICE A DAY 04/10 completed Not Available Not Available Not Available dicyclomi ne 10 mg capsule TAKE 1 CAPSULE BY MOUTH 4 TIMES A DAY FOR 7 DAYS 10/17 completed Not Available Not Available Not Available naproxen 500 mg tablet TAKE 1 TABLET BY MOUTH TWICE A DAY FOR 10 DAYS, FOR MUSCLE PAIN. active Not Available Not Available No t Available vitamin B complex capsule Take 1 capsule every day by oral route. active Not Available Not Available No t Available amoxicill in 875 mg-potass ium clavulana te 125 mg tablet TAKE 1 TABLET BY MOUTH EVERY 12 HOURS FOR 7 DAYS 01/15 completed Not Available Not Available Not Available oxycodone 5 mg tablet TAKE 1 TABLET BY MOUTH EVERY 6 HOURS NEEDED FOR SEVERE PAIN 04/13 completed Not Available Not Available Not Available Bactrim DS 800 mg-160 mg tablet Take 1 tablet every 12 hours by oral route for 7 days. 2015 active Not Available Not Available Not Avai lable Vitamin D3 25 mcg (1,000 unit) tablet Take 0.5 tablets every day by oral route. 06/17 completed Not Available Not Available Not Available Vitamin D3 25 mcg (1,000 unit) capsule Take 1 capsule every day by oral route. active Not Available Not Available No t Available cholestyr amine (with sugar) 4 gram oral powder Take 1 {packet} by oral route. 07/27 completed 07/05/24- stopped taking after GB removal Not Available Not Available Not Available nitrofura ntoin monohydra te/macroc rystals 100 mg capsule TAKE ONE CAPSULE BY MOUTH TODAY (01/09/20 ) AND ONE CAPSULE TOMORROW MORNING( 01/10/20) 01/15 completed Not Available Not Available Not Available Boostrix Tdap 2.5 Lf unit-8 mcg-5 Lf/0.5 mL intramusc ular syringe 06/24 completed Not Available Not Available Not Available omeprazol e TWO TIMES DAILY 2013 active RECORDED 09/08/19 14 2:37PM BY KAMILLE TOMLINSON MD, OFFICE VISIT; Not Available Not Available Not Available Cholestyr amine Light 4 gram oral powder DISSOLVE (4 GM OF POWDER ) IN WATER AND DRINK BY MOUTH DAILY 01/08 completed PRN Not Available Not Available Not Available Vitamin D3 50 mcg (2,000 unit) tablet Take 1 tablet every day by oral route. 04/10 completed Not Available Not Available Not Available vitamin E (dl, acetate) 180 mg (400 unit) capsule TAKE 2 CAPSULES EVERY DAY BY ORAL ROUTE AT BEDTIME FOR 30 DAYS, FOR LEG CRAMPS. 07/05 completed Not Available Not Available Not Available Gavilax 17 gram/dose oral powder FOR BOWEL PREP: 238 G, SPLIT BETWEEN TWO (32 OZ) BOTTLES OF GATORADE 04/13 completed Not Available Not Available Not Available potassium citrate ER 15 mEq (1,620 mg) tablet,ex tended release 06/24 completed Not Available Not Available Not Available vitamin E mixed 400 unit capsule Take 2 capsules every day by oral route at bedtime for 30 days, for leg cramps. 07/05 completed Not Available Not Available Not Available Cepacol Sore Throat (benzocai ne-mentho l) 15 mg-2.6 mg lozenges Take 1 lozenge every 4-6 hours by mucous route for 10 days. 01/21 completed Not Available Not Available Not Available Emverm 100 mg chewable tablet CHEW 1 TABLET NOW AND 1 TABLET IN 2 WEEKS. 09/07 completed Not Available Not Available Not Available Fluarix Quad [id number] (PF) 60 mcg (15 mcg x 4)/0.5 mL IM syringe 12/17 completed Not Available Not Available Not Available Flonase Sensimist 27.5 mcg/actua tion nasal spray,yusef pension TAKE 2 SPRAYS EVERY DAY BY NASAL ROUTE IN THE EVENING FOR 30 DAYS. 12/22 completed as needed Not Available Not Available Not Available Skyrizi every 2 months active Not Available Not Available No t Available Flucelvax Quad (PF) 60 mcg (15 mcg x 4)/0.5 mL IM syringe 06/24 completed Not Available Not Available Not Available Flucelvax Quad (PF) 60 mcg (15 mcg x 4)/0.5 mL IM syringe PHARMACY ADMINIST ERED 05/09 completed Not Available Not Available Not Available Vitals Date Recorded Body height Body mass index (BMI) Body weight Heart rate Oxygen saturation Oxygen saturation in Arterial blood by Pulse oximetry Body temperature Systolic And Diastolic Systolic And Diastolic Provider Name and Address Organization Details Last Updated DateTime 5 167.64 cm 26.6 kg/m2 11577.7 4 g 84 /min 98 % 98 % 97.9 [degF] 143/83 mm[Hg] 142/84 mm[Hg] Naila prescott MA [facility] 5 14:35:08 Date Recorded Body height Body mass index (BMI) Body weight Heart rate Oxygen saturation Oxygen saturation in Arterial blood by Pulse oximetry Body temperature Systolic And Diastolic Provider Name and Address Organization Details Last Updated DateTime 5 167.64 cm 26.6 kg/m2 27955.7 4 g 85 /min 99 % 99 % 97.9 [degF] 131/80 mm[Hg] Laurie Talley MA [facility] 5 15:12:23 Date Recorded Body height Body mass index (BMI) Body weight Heart rate Oxygen saturation Oxygen saturation in Arterial blood by Pulse oximetry Body temperature Systolic And Diastolic Provider Name and Address Organization Details Last Updated DateTime 5 167.64 cm 26.6 kg/m2 58723.7 4 g 92 /min 99 % 99 % 97.4 [degF] 134/79 mm[Hg] Laurie Talley MA [facility] 5 15:55:14 Date Recorded Body height Body mass index (BMI) Body weight Heart rate Oxygen saturation Oxygen saturation in Arterial blood by Pulse oximetry Body temperature Systolic And Diastolic Systolic And Diastolic Systolic And Diastolic Provider Name and Address Organization Details Last Updated DateTime 5 167.64 cm 28.1 kg/m2 77763.0 7 g 79 /min 99 % 99 % 97.7 [degF] 137/75 mm[Hg] 126/72 mm[Hg] 128/78 mm[Hg] Naila prescott MA [facility] 5 13:14:20 Social History Question Answer Notes LastModified by Organizat ion Details LastModified Time Tobacco Smoking Status Never Smoker Not Available [employer] 04/24/2020 03:36:35 Do You Have An Advance Directive? Yes 11/09/2015 [id number] Information not available 04/24/2020 Is Blood Transfusion Acceptable In An Emergency? Yes [id number] Information not available 04/24/2020 What Is Your Level Of Caffeine Consumption? Moderate Coffee [id number] Information not available 04/24/2020 How Much Tobacco Do You Chew? None [id number] Information not available 04/24/2020 What Type Of Diet Are You Following? REGULAR [id number] Information not available 04/24/2020 Which Illicit Or Recreational Drugs Have You Used? None [id number] Information not available 04/24/2020 Live Alone Or With Others? With Others (Toby), 1 Son And 1 Daughter [email or web address] Information not available 07/15/2022 Do You Take Precautions To Prevent Distracted Driving? Yes Information not available 11/09/2015 How Often Do You Need To Have Someone Help You When You Read Instructions, Pamphlets, Or Other Written Material From Your Doctor Or Pharmacy? Never [email or web address] Information not available 11/09/2015 Have You Served In The ? No [email or web address] Information not available 12/17/2016 Have You Or Anyone In Your Household Had Any Of The Following Symptoms In The Last 14 Days: Sore Throat, Cough, Chills, Body Aches For Unknown Reasons, Shortness Of Breath For Unknown Reasons, Loss Of Smell, Loss Of Taste, Fever At Or Greater Than 100 Degrees Fahrenheit? No [email or web address] Information not available 01/16/2020 Are You Or Anyone In Your Household A Health Care Provider Or Emergency Responder? No [email or web address] Information not available 01/16/2020 To The Best Of Your Knowledge Have You Been In Close Proximity To Any Individual Who Tested Positive For COVID-19? No [email or web address] Information not available 01/16/2020 *AWV ONLY* Are You Presently Prescribed Opioid Medication By PCP Or Specialist? If YES -Provider Assess The Benefit For Other, Non-opioid Pain Therapies Instead, Even If The Patient Does Not Have OUD But Is Possibly At Risk. No Information not available 04/10/2021 Have You Recently Traveled To A COVID-19 High Risk Area Or Gathering In The Last 10 Days? No Information not available 04/10/2021 What Was The Date Of Your Most Recent Tobacco Screening? 04/13/2025 [email or web address] Information not available 04/13/2025 How Many Children Do You Have? 3 2 Sons And 1 Daughter. Her Oldest Son Has 2 Daughters And Is ; Her Youngest Son Is Cortez Works With Children (getting His Masters Degree), Her Daughter Is A Safety Scientist. Information not available 07/15/2022 Do You Use Protection During Sex? No [id number] Information not available 04/24/2020 Seat Belts Used Routinely Yes Information not available 10/16/2014 Are You Sexually Active? Yes [id number] Information not available 04/24/2020 Smoke Alarm In Home Yes Information not available 11/09/2015 Are You Passively Exposed To Smoke? No Information not available 11/09/2015 How Much Tobacco Do You Smoke? No [id number] Information not available 04/24/2020 General Stress Level Medium Information not available 01/20/2014 Do You Use Sunscreen Routinely? Yes [id number] Information not available 04/24/2020 Sex: Unknown Functional Status Question Answer Note LastModified by Organizat ion Details LastModified Time Do you use any illicit or recreational drugs? No Information not available 04/10/2021 Do you or have you ever used any other forms of tobacco or nicotine? No Information not available 04/10/2021 What is your level of alcohol consumption? None [id number] Information not available 04/24/2020 Do you or have you ever used smokeless tobacco? Never used smokeless tobacco Information not available 05/09/2020 Are you currently employed? Yes [id number] Information not available 04/24/2020 Are you able to walk independently without assistance or assistive devices? [email or web address] Information not available 04/10/2021 Are you able to care for yourself independently? Yes [id number] Information not available 04/24/2020 What is your occupation? [employer] Information not available 12/17/2017 Do you or have you ever used e-cigarettes or vape? Never used electronic cigarettes Information not available 05/09/2020 What is your exercise level? Occasional [id number] Information not available 04/24/2020 Mental Status None recorded. Family History Relationship Description Onset Age of this Age Resolved Age Notes LastModified by Organization Details LastModified Time Mother Hypertensive disorder [email or web address] Not available 13:06:16 Mother Malignant neoplasm of brain 78 Being treate d in [place] [email or web address] Not available 07/15/2022 10:41:43 Father Hypertensive disorder 80 [email or web address] Not available 06/23 10:06:06 Father Heart disease 80 [email or web address] Not available 06/23 10:40:54 Father Myocardial infarction 80 [email or web address] Not available 10:41:05 Brother Diabetes mellitus [email or web address] Not available 12/20 15:53:01 Brother Congenital heart disease [email or web address] Not available 12/20 15:53:14 Notes:2 younger brothers bot h in [place] Medical History No medical history recorded. Gynecological History Statement/Question Response Most Recent Mammogram 05/16/2024 Current Control Method Hysterectom y Age at Menarche 12 Age at First Child 26 Date of Last Colonoscopy 10/11/2024 Sexually Active? Y Menses Monthly N Date of Last Pap Smear 12/25/2015 Sexual Problems? N LMP Unknown Desired Control Method Hysterectom y Obstetrics History GPAL:G 0 P 0 0 0 0 Immunizations Vaccine Type Date Status Note Provider Nam e and Address Organization Details Recorded Time [facility] 9 [facility] 12:44:39 Influenza, MDCK, quadrivalent, PF 0 [facility] 12:44:39 COVID-19, mRNA, LNP-S, PF, 100 mcg/0.5mL dose or 50 mcg/0.25mL dose 1 [facility]16[facility] 12:44:39 COVID-19, mRNA, LNP-S, PF, 100 mcg/0.5mL dose or 50 mcg/0.25mL dose 1 [facility]16[facility]24 12:44:39 Influenza, split virus, quadrivalent, PF 6 [facility]16[facility]24 12:44:39 Influenza, split virus, trivalent, PF 5 [facility]16[facility] 12:44:39 COVID-19, mRNA, LNP-S, PF, 100 mcg/0.5mL dose or 50 mcg/0.25mL dose 1 [facility]16/[facility]24 12:44:39 Influenza, split virus, quadrivalent, PF 2 [facility]16/[facility]24 12:44:39 influenza, unspecified formulation 5 [facility] 11:54:17 Influenza, MDCK, quadrivalent, PF 9 completed Yusra Madrigal LPN null, [facility] 12/29/2023 13:48:28 COVID-19, mRNA, LNP-S, PF, 50 mcg/0.5 mL 4 completed Jossie Schreiber null, [facility] 07/20/2023 11:54:17 Influenza, split virus, quadrivalent, preservative 9 completed Yusra Madrigal LPN null, [facility] 12/29/2023 13:48:28 Tdap 5 completed SANAZ Lee, [facility] 03/16/2024 12:44:39 Influenza, split virus, quadrivalent, PF 8 completed SANAZ Lee, [facility] 03/16/2024 12:44:39 Influenza, split virus, quadrivalent, PF 1 completed SANAZ Lee, [facility] 03/16/2024 12:44:39 zoster recombinant 5 completed Jossie Schreiber null, [facility] 01/17/2025 13:29:08 HepB-CpG 5 completed SANAZ Lee, [facility] 09/23/2024 14:31:16 Pneumococcal conjugate PCV21, polysaccharide [id number] conjugate, PF 5 completed SNAAZ Lee, [facility] 09/23/2024 14:31:16 zoster recombinant 5 completed Not Available [facility] 04/13/2025 12:47:48 COVID-19, mRNA, LNP-S, PF, liyah-sucrose, 30 mcg/0.3 mL 5 completed SANAZ Larkin, [facility] 04/13/2025 13:07:59 Influenza, recombinant, trivalent, PF 5 completed Not Available [facility] 04/13/2025 12:47:48 Influenza, split virus, quadrivalent, PF 4 completed Naila Juarez MA null, [facility] 07/16/2023 10:38:00 Influenza, split virus, trivalent, PF 4 completed Kamille Nelson MD [address] [address], [place], [address], [facility] 03/16/2024 13:15:22 Past Encounters Encounter ID Performer Location Encounter Start Date Encounter Closed Date Diagnosis/Indication Diagnosis SNOMED-CT Code Diagnosis ICD10 Code Diagnosis IMO Codes Diagnosis Note [id number] Kamille Nelson MD Main Office [address] [address] [place] [address] 01/19/2014 13:15:33 01/19/2014 14:10:00 Insomnia 406042639 may be the cause of her fatigue. May also have a mood disorder but will treat the insomnia first. Vitamin D deficiency 77183556 complete 12-week course; half way through. Fatigue 12840527 no medica l etiology found for her fatigue; this may be secondary to stress which is exacerbate d by insomnia. We will treat her insomnia and she will call if the fatigue persists on treatment. [id number] [employer] [address] [place] [address] 09/02/2012 00:00:00 [id number] [employer] [facility] [address] [place] [address] [address] [place] [address] 09/07/2013 00:00:00 [id number] [facility] [address] [place] [address] 12/06/2013 00:00:00 [id number] Kamille Nelson MD Main Office [address] [address] [place] [address] 05/23/2014 14:01:07 05/23/2014 14:18:53 Tuberculosis screening [id number] Kamille Nelson MD Main Office [address] [address] [place] [address] 05/25/2014 13:37:29 05/25/2014 13:45:13 [id number] Kamille Nelson MD Main Office [address] [address] [place] [address] 07/28/2014 10:07:10 07/28/2014 11:32:01 Fever 858200620 no clear etiology for her fever but will check her urine although an infection is unlikely since she just completed a course of abx a few days ago. We will send blood work as well and see here back next week. Pain of hip region 44087294 [id number] Kamille Nelson MD Main Office [address] [address] [place] [address] 08/09/2014 15:01:23 08/09/2014 15:49:29 Fever 999804142 this has resolved. Her labs from last visit were good and her urine culture was negative. Pain of hip region 08912442 x-ray was normal; this may represent a mild sprain or even mild OA not showing up on the x-ray. She will take NDAIDs or Tylenol prn pain. [id number] LAWRENCE Santiago Main Office [address] [address] [place] [address] 10/16/2014 09:03:12 10/16/2014 10:13:56 Adult health examination 420234775 Administra tion of diphtheria, pertussis, and tetanus vaccine 948733063 Pain of mu ltiple joints 06785925 [id number] Kamille Nelson MD Main Office [address] [address] [place] [address] 03/15/2015 09:40:24 03/15/2015 10:38:40 Vitamin D deficiency 32099593 [facility] 26166063 Gastroesop hageal reflux disease 774148416 [id number] Kamille Nelson MD Main Office [address] [address] [place] [address] 06/11/2015 11:27:32 06/11/2015 11:40:02 Tuberculosis screening 426466421 Z11.1 [id number] Kamille Nelson MD Main Office [address] [address] [place] [address] 08/16/2015 16:16:09 08/16/2015 17:00:04 Urolith 743630462 N20.9 this may represent an infection as well so we will do a course of abx and she will call her urologist if the sx return. Fatigue 21813722 R53.83 She is concerned about Lupus but she does not have the symptoms to warrent this as a dx. [id number] Yovany Pineda PA-C Main Office [address] [facility] [address] [place] [address] 08/30/2015 09:45:45 08/30/2015 11:14:58 Musculoskeletal pain 242433224 S29.019A suspect mild left rib muscle strain, offered re-assuran ce Pain of joint 66078176 M 25.50 pt believes she has lupus -- thinks body is attacking itself d/t kidney stones - explained at length how initial blood tests have been negative on a few occasions. may ultimately need to see specialist to be convinced otherwise. rec. ibu 600mg po tid c food x 1 week as a trial. 25 minute office visit with greater than 50% of the visit face-to-fa ce with the patient and/or family providing counseling and/or coordinati on of care. [id number] Kamille Nelson MD Main Office [address] [facility] [address] [place] [address] 11/09/2015 12:47:02 11/09/2015 14:22:57 Hyperglycemia 55859239 R73.9 Adult heal th examination 853055130 Z00.00 Hydronephrosis 22769686 N13.[address] Verdin about her diagnosis and check on her w/u since she states that she was told that her kidney was working at 47% . Urolith 685337534 N20.9 [id number] Kamille Nelson MD Main Office [address] [address] [place] [address] 06/04/2016 09:08:26 06/04/2016 09:22:47 Tuberculosis screening 297177397 Z11.1 [id number] Mukesh Menchaca MD Main Office [address] [address] [place] [address] 06/06/2016 16:31:37 06/06/2016 16:36:41 [id number] Kamille Nelson MD Main Office [address] [facility] [address] [place] [address] 12/17/2016 14:24:40 12/17/2016 15:41:09 Adult health examination 936975540 Z00.00 UTD with immunizati ons and WASH DRILLER care. Also UTD with mammogram. Gastroesop hageal reflux disease 464815833 K21.9 Controlled with PPI's. Musculoskeletal pain 279 771170 M79.1 She has been having multiple joint pains for years w/o any obvious swelling. She will see rheum in January and I will see her after that appointmen t. This may represent fibromyalg ia. Impetigo 51805334 L01.00 [id number] Kamille Nelson MD Main Office [address] [address] [place] [address] 09/21/2017 14:31:12 09/21/2017 15:11:06 Gastroesophageal reflux disease 720464880 K21.9 Controlled with PPI's. Anxiety 23575082 F41.9 [id number] Kamille Nelson MD Main Office [address] [address] [place] [address] 12/17/2017 13:42:29 12/17/2017 14:37:45 Adult health examination 443277497 Z00.00 UTD with immunizati ons and WASH DRILLER care. Also UTD with mammogram. Gastroesop hageal reflux disease 045006233 K21.9 Controlled with PPI's. Pain of mu ltiple joints 86113402 M25.50 She was seen by Dr Estrada who felt that she did not have an inflammato ry arthritis. She would like a second opinion. Insomnia 216728166 G47.0 0 [id number] Jeimy Pineda PA-C Main Office [address] [address] [place] [address] 04/05/2018 14:47:11 04/05/2018 16:15:26 Needs influenza immunization 220361678 Z23 Headache 16535365 R51 FRontal headache new onset. R/o intracrani al pathology/ mass. Will do CT and if negative and headaches continue , will ask neurology opinion. Vitamin D deficiency 347 08935 E55.9 pt. kis not taking Vit D supplement s . Advised to take 2000 IUs daily. Fatigue 62600061 R53.83 [id number] Kamille Nelson MD Main Office [address] [address] [place] [address] 05/05/2018 09:36:01 05/05/2018 11:21:40 [id number] Kamille Nelson MD Main Office [address] [address] [place] [address] 05/06/2018 09:35:48 05/06/2018 10:20:28 Right flank pain 523937607 R10.9 She will complete levaquin and fluconazol e as prescribed . Calculus o f kidney and ureter 065088818 N20.[address] and will have it removed next week. Anxiety 75414247 F41.9 She is having trouble coping with medical issues. We spoke about counseling and meds but she is interested in neither. [id number] Kamille Nelson MD Main Office [address] [address] [place] [address] 01/03/2019 15:18:31 01/03/2019 16:11:36 Adult health examination 841937740 Z00.00 UTD with immunizati ons and WASH DRILLER care. Also UTD with mammogram. Pain of le ft hip joint 9123873190 08089 M25.552 [id number] Sidney Bean MD Main Office [address] [address] [place] [address] 02/14/2019 15:07:25 02/14/2019 16:45:54 Right flank pain 668245126 R10.9 Pt with hx of stones, feels like one is passing, UA not consistent with UTI but does have some blood likely from stone. Pt is not in acute pain, more of a dull ache. Will push fluids, check US for presence of stones, pain med if needed, call prn if worsening or has signs of infection History of calculus of kidney 376343789 Z87.442 Short term pain med to use prn for pain when stone is passing. Followup with urology, pt to call to work out a payment plan with them. [id number] Kamille Nelson MD Main Office [address] [place] [address] 06/24/2019 10:01:41 06/24/2019 11:47:17 Gastroesophageal reflux disease 963843880 K21.9 Controlled with PPI's. Lesion of nose 705140379 J34.89 Pain of mu ltiple joints 36530635 M25.50 She was seen by Dr Estrada who felt that she did not have an inflammato ry arthritis. She is currently being seen by Dr Scott and we have requested his most recent office note. [id number] Kamille Nelson MD Main Office [address] [place] [address] 12/06/2019 12:41:18 12/06/2019 13:37:26 Dysuria 03555287 R30.0 Does not appear to be a UTI. Will send urine for culture. Calculus o f kidney and ureter 357869704 N20.2 She will call urology to see if she can have her appointmen t moved up. [id number] Kamille Nelson MD Main Office [address] [place] [address] 12/26/2019 13:11:14 12/26/2019 15:41:25 [id number] Sidney Bean MD Main Office [address] [address] 01/16/2020 12:53:59 01/16/2020 14:07:14 Adult health examination 826592126 Z00.00 Gastroesop hageal reflux disease 585957298 K21.9 uses ppi prn red sauce Vitamin D deficiency 347 33526 E55.9 Body mass index 25-29 - overweight 594079261 E66.3 Z68.28 cont wt loss Urolith 093484273 N20.9 s/p stent, cont f/u c uro Screening for malignant neoplasm of breast 043895332 Z12.39 Fatigue 89832412 R53.83 Pain of mu ltiple joints 20163994 M25.50 pt requests 3rd opinion - likely will have to go to [place] or [place] Skin lesion 13439975 L98 .9 Impaired f asting glycemia 869125369 R73.01 [id number] Kamille Nelson MD Main Office 3640 [facility] [address] [place] [address] 04/09/2020 13:12:50 04/09/2020 15:34:50 Hydronephrosis 57177960 N13.30 Calculus o f kidney and ureter 319008641 N20.2 She will call urology to schedule a f/u. Now w/o pain and not taking any meds. [id number] Sidney Bean MD Main Office [address] [place] [address] [place] [address] 05/09/2020 11:06:47 05/09/2020 12:46:23 Right flank pain 816211554 R10.9 s/p recent admission - a little better now, but still uses prn pain pill from uro - see below History of calculus of kidney 012912568 Z87.442 cont f/u c uro - rev. last note - seen ~ 3 wks ago as outpt p dc - they rec neph eval - will help coordinate Pain of mu ltiple joints 62307538 M25.50 seen by specialist in [place] - printed note/gave it to her, and rev rheum note c her-- had labs done - will attempt to get these as well, but encouraged her to call them directly (she has not done so, was advised to f/u prn) 25 minute office visit with greater than 50% of the visit face-to-fa ce with the patient and/or family providing counseling and/or coordinati on of care. Prediabetes 259971571 R7 3.03 evidence of pre-diabet es - rec less sugar (soda, juice, candy, ice cream, etc) and increased aerobic exercise to help with weight loss. Mixed hyperlipidemia 267 871837 E78.2 rec low carb diet to lower trigs [id number] Kamille Nelson MD Main Office [address] [address] [place] [address] 06/04/2020 08:17:42 06/04/2020 09:10:04 [id number] Sidney Bean MD Main Office [address] [address] [place] [address] 04/10/2021 10:05:07 04/10/2021 11:54:11 Adult health examination 391549871 Z00.00 Mixed hyperlipidemia 267 905093 E78.2 rec low carb diet to lower trigs Prediabetes 557245384 R7 3.03 evidence of pre-diabet es - rec less sugar (soda, juice, candy, ice cream, etc) and increased aerobic exercise to help with weight loss. Screening for malignant neoplasm of colon 453721072 Z12.11 encouraged pt to call her ins co to see if covers colon Screening for malignant neoplasm of breast 763959448 Z12.39 Screening for malignant neoplasm of cervix 643657127 Z12.4 Hepatitis C screening 41 0666218 Z11.59 Needs infl uenza immunization 181976987 Z23 History of calculus of kidney 404530601 Z87.442 cont hctz as dir, cont f/u c uro - rev. last note Anti-nucle ar factor detected 608226717 R76.8 seen by rheum x 2 - o/w negative w/u Vitamin D deficiency 347 76694 E55.9 Gastroesop hageal reflux disease 835825009 K21.9 recommend PPI Q day with PRN pepcid Multiple b enign melanocytic nevi 667233449 D22.9 pt has multiple nevi developing on chest, requested derm referral for eval [id number] Kamille Nelson MD Main Office [address] [facility] [address] [place] [address] 06/25/2021 10:46:14 06/25/2021 11:41:33 Gastroesophageal reflux disease 420457864 K21.9 No longer controlled . She will stop the omeprazole and start esomeprazo le and I reminded her that it's best to take it in the am before eating or drinking anything. She has a GI appointmen t at [facility] next week. [id number] Kamille Nelson MD Main Office [address] [facility] [address] [place] [address] 07/15/2021 14:50:09 07/15/2021 16:02:17 Abnormal liver function 96189633 K76.89 Her AMA was negative making PBC less likely. Will check hepatitis screen. Nausea and vomiting 1693 1999 R11.2 She will increase her nexium to bid. [id number] Jessica swift MD Main Office [address] [address] [place] [address] 05/23/2022 10:57:44 05/23/2022 12:08:07 Gastroesophageal reflux disease 384589241 K21.9 Contiue PPI, avoid acidic food, caffeine, alcohol, spicy foods, eating before bed Epigastric pain 87631883 R10.13 check labs, check US , hx of elevated LFTs with abd pain in the past, has sludge and gallstones . No sx today, Call if any acute sx. Check US and if positive would consider surgical referral. Omno have her see GI, might need EGD. Call or ED for any acute sx. History of gallstones 40 5241053 Z87.19 Repeat to see if any stones in ducts . [place] lowfat diet for now. [id number] Kamille Nelson MD Main Office [address] [address] [place] [address] 06/25/2022 12:34:01 06/25/2022 13:17:24 Headache 66961732 R51.9 She will take NSAIDs and if symptoms persist we will consider an imaging study. Mixed hyperlipidemia 267 205299 E78.2 [id number] Kamille Nelson MD Main Office [address] [place] [address] [place] [address] 07/15/2022 10:03:08 07/15/2022 10:45:48 Adult health examination 715943526 Z00.00 UTD with immunizati ons including COVID and flu and UTD with mammogram. She is due for a WASH DRILLER exam since she hasn't had an exam in 5 years. She will make her own appointmen t with Dr Navarrete. Gastroesop hageal reflux disease 207792187 K21.9 Doing okay on PPI. Sometimes gets breakthrou gh symptoms depending upon what she eats. Calculus o f kidney and ureter 605395855 N20.2 This has been an ongoing and intermitte nt problem over the past 25 years or more. On meds and followed regularly by urology. Mixed hyperlipidemia 267 596581 E78.2 Cholestero l levels are normal. Steatotic liver disease 412511247 K76.0 Currently her LFT's are normal. Screening for malignant neoplasm of colon 336596809 Z12.11 We will contact GI about a colonoscop y. [id number] Claudia hamm NP Main Office [address] [facility] [address] [place] [address] 10/03/2022 10:56:20 10/03/2022 11:46:50 Nonulcer dyspepsia 2993663 K30 try pepcid for dyspepsia, limit nsaids, bland diet History of gallstones 40 8049718 Z87.19 Repeat to see if any stones in ducts . [place] lowfat diet for now. Call if any acute sx and go to ED . Stable no sx for now. [id number] GITA AMEZQUITA MD Main Office 3640 [facility] [address] [place] [address] 10/10/2022 11:01:47 10/10/2022 11:55:56 Pain in throat 274030698 R07.0 - has been on-going for 6 days and also associated with dry cough, hoarseness and rhinorrhea - CENTOR score -1- testing for strep performed due to patient's concerns, and it was negative- most likely viral at this time- advised to continue with supportive treatment- Tylenol OTC, not to exceed package insert for pain or fever q4-6h advised prn. Counselled on not exceeding more than 3g/day.- Throat Lozenges otc prn for sore throat- saltwater gargle- adequate hydration enforced- saline sprays- Also advised can use a teaspoon honey for cough- RTC if no improvemen t Persistent cough 1844248 02 R05.3 - to help with the dry cough pt provided with benzonatat e 200mg TID as needed [id number] Kamille Nelson MD Main Office [address]30 [facility] [address] [place] [place] [address] 11/26/2022 11:38:43 12/11/2022 08:41:24 [id number] Kamille Nelson MD Main Office [address]40 [facility] [address] [place] [place] [address] 01/21/2023 10:48:48 01/21/2023 11:17:22 Calculus of kidney and ureter 286462086 N20.2 This has been an ongoing and intermitte nt problem over the past 25 years or more. On meds and followed regularly by urology. History of calculus of kidney 279182453 Z87.442 Irritable bowel syndrome with diarrhea 631048446 K58.0 This has been a problem since her gallbladde r surgery 11/25/22 (2 months ago).She will try to make some changes and add insoluble fiber and will call for further w/u if this persists. [id number] Jackie Nascimento MD Main Office [address] [facility] [address] [facility] [place] [address] 05/12/2023 11:35:27 05/12/2023 12:08:47 Trochanteric bursitis of right hip 8491484562 04326 M70.61 R. trochanter ic bursitis. repeat xray to r/o structural anomaly and refer to an orthopedic s for cortisone injection. Start meloxicam 15 mg daily for 2 weeks. [id number] Kamille Nelson MD Main Office [address] [facility] [address] [facility] [place] [address] 07/16/2023 09:35:38 07/16/2023 10:38:07 Adult health examination 702743658 Z00.00 UTD with immunizati ons including COVID and flu and UTD with mammogram. She is due for a WASH DRILLER exam since she hasn't had an exam in 5 years. She will make her own appointmen t with Dr Navarrete. Calculus o f kidney and ureter 879920672 N20.2 This has been an ongoing and intermitte nt problem over the past 25 years or more. On meds and followed regularly by urology. Steatotic liver disease 201885247 K76.0 Currently her LFT's are normal. Gastroesop hageal reflux disease 382214626 K21.9 Doing okay on PPI. Sometimes gets breakthrou gh symptoms depending upon what she eats. Mixed hyperlipidemia 267 252175 E78.2 Cholestero l levels are normal. Prediabetes 671992480 R7 3.03 Needs infl uenza immunization 684624693 Z23 Rosacea 014128251 L71.9 [id number] Kamille Nelson MD Main Office [address] [address] [place] [address] 12/03/2023 12:56:39 12/03/2023 13:17:42 Burning sensation of skin 702763949 R20.8 tingling/b urning sensation along the left forearm; non-radiat ing-no skin discolorat ion, swelling, or known trauma to the area-denie s of any neck pain/injur y-has FROM of the left upper extremity- will check lab work for any vitamin or iron deficiency Cramp in lower limb 9519 11511 R25.2 wells criteria score of 0-no red flag symptoms-i ntermitten t muscle cramp to the left calf-pt notes mostly occurs at night; has relief with walking-wi ll further evaluate for vitamin deficiency [id number] Kamille Nelson MD Main Office [address] [address] [place] [address] 12/29/2023 13:28:09 12/29/2023 14:20:04 Prediabetes 450441821 R73.03 Her A1C remains at 5.7 where it has been for 4 years. We will follow this twice a year. Gastroesop hageal reflux disease 786945414 K21.9 Doing okay on PPI. Sometimes gets breakthrou gh symptoms depending upon what she eats. Rosasusya 962787227 L71.9 [id number] GITA AMEZQUITA MD Main Office [address] [place] [address] 01/09/2024 10:17:11 01/09/2024 10:43:23 Pain in throat 842100510 R07.0 - has been on-going for 2-3 weeks and also associated with dry cough, hoarseness and rhinorrhea - CENTOR score -1- testing for strep performed due to patient's concerns, and it was negative- do not believe symptoms are coming from infectious causes but more allergic- advised to continue with supportive treatment- Tylenol OTC, not to exceed package insert for pain or fever q4-6h advised prn. Counselled on not exceeding more than 3g/day.- Throat Lozenges otc prn for sore throat- saltwater gargle- adequate hydration enforced- saline sprays- Also advised can use a teaspoon honey for cough- RTC if no improvemen t Cough 85218972 R05.9 - pt is having a dry cough for for reassuranc e ordered a chest x-ray, if positive will sent antibiotic treatment for pneumonia- pt provided with tessalon perles to use as needed Allergic rhinitis 295883 04 J30.9 - to help with pain in trough and dry cough pt was provided with flonase to use nightly [id number] Kamille Nelson MD Main Office [address] [place] [address] [place] [address] 03/03/2024 13:58:58 03/09/2024 10:19:24 [id number] Kamille Nelson MD Main Office [address] [place] [address] [place] [address] 03/16/2024 12:30:37 03/16/2024 13:16:44 Needs influenza immunization 528852700 Z23 19 YEARS AND OLDER ONLY Cramp in l ower limb associated with sleep 2194060973 49943 G47.62 She will try exercises at home and a handout was given with other instructio ns. She will also try vitamin E and if that is not helpful we will try prescribed meds. [id number] Kamille Nelson MD Main Office [address] [place] [address] [place] [address] 04/16/2024 08:56:13 04/16/2024 09:21:30 Muscle pain 94753035 M79.10 Her pain appears to be muscular since she has point tenderness , it is superficia l and it is brought on by movements. She will rest, apply heat and take NSAIDs. Advised to call if the pain does not decrease by the end of next week. [id number] Kamille Nelson MD Main Office [address] [place], [place] [address] [address] 07/27/2024 13:21:20 07/27/2024 14:34:20 Adult health examination 361028833 Z00.00 UTD with immunizati ons including COVID, tetanus and fluUTD with mammogram. She is due for a WASH DRILLER exam since she hasn't had an exam in more than 5 years. Gastroesop hageal reflux disease 741020041 K21.9 Doing okay on PPI. Sometimes gets breakthrou gh symptoms depending upon what she eats. Mixed hyperlipidemia 267 897696 E78.2 Cholestero l levels were normal 1 year ago. Will recheck levels. Calculus o f kidney and ureter 631447669 N20.2 This has been an ongoing and intermitte nt problem over the past 25 years or more. On meds and followed regularly by urology. [id number] GITA AMEZQUITA MD Main Office [address] [place] [address] 08/22/2024 10:41:58 08/22/2024 10:59:30 Hordeolum externum of upper eyelid of right eye 1636747753 62827 H00.011 - currently very small and has been present for two days (08/20) with no worsening- at this time would recommend conversive management as patient has not tried this> warm compresses to eye for 15 minutes, four times daily- if no improvemen t within 2 weeks will send erythroc in ointment [id number] Kamille Nelson MD Main Office [address] [place] [address] 08/26/2024 08:35:51 08/26/2024 09:24:07 Diarrhea 45313527 R19.7 ? IBS or change in bowel habits after cholecyste ctomy. Colonoscop y in 2022 benign , no polyps. Diverticul osis, but not presenting with diverticul itis symptoms today. Internal hemorrhoid s present on colonoscop y. recommend to try benefiber tabs twice weekly. Monitor for pain persistenc e or increase. Internal hemorrhoids 906 32007 K64.8 recommend steroid cream treatment . Consider colorectal referral if symptoms persist. [id number] Kamille Nelson MD Main Office [address] [address] 08/30/2024 13:56:10 08/30/2024 14:55:56 Pruritus ani 88806695 L29.0 The itch could be from internal hemorrhoid s. I will treat her presumptiv tamie for pin worms because she has had symptoms and has seen or felt things crawling. [id number] Kamille Nelson MD Main Office [address] [facility] [address] [facility] [place] [place] [address] 09/07/2024 12:37:19 09/07/2024 13:15:40 Irritable bowel syndrome with diarrhea 714327501 K58.0 Her tests including pin worm have been negative to date but we treated her presumptiv tamie. Other tests including O&P are pending. She was also referred to GI for further evaluation and possible colonoscop y. [id number] Kamille Nelson MD Main Office 3640 [facility] [address] [place] [address] 09/23/2024 14:25:41 09/23/2024 15:20:53 Pruritus ani 14252091 L29.0 Patient believes she has parasites and passed worms x 1. Has been treated, will refill med for her to take again.I did explain this may all be related to possible Crohn's and she may have passed fat/ mucous but needs further eval. Will refer to ID as recommende d by GI. Feces: par asite present 911872226 R85.5 refer to ID, GI profile negative, she did provide stool sample at GI yesterday as well. Generalize d anxiety disorder 29119855 F41.1 Patient is very upset, anxious and not sleeping due to sensation of movement at her anus, buttocks and legs. Sx are worse at night when she is not distracted . Will rx lorazpeam short term to use at bedtime for anxiety and sleep. I did explain this is a controlled med and should not be taken if diving, working or drinking alcohol. She can discuss further with PCP at next visit. i did encourage patient to keep her trip to [place] next week as it may help with stress and anxiety. Inflammato ry bowel disease 08309797 K52.9 CT scan:Findi ngs are most suggestive of a sequelae of inflammato ry bowel disease, favorCrohn 's disease. There is evidence of chronic inflammati on of the distal 25-30cm of ileum and proximal right hemicolon. Mild mucosal hyperenhan cement maysuggest mild superimpos ed active ileitis. This also wall thickening of thedistal sigmoid colon and rectum which is not well assessed due to underdiste ntion. Mild colitis is also possible. Follow-up with gastroente rology isrecommen ded with considerat ion for assessment with colonoscop y. She saw GI, will be scheduled for colonoscop y. [id number] Kamille Nelson MD Main Office [address] [place] [address] [place] [address] 10/17/2024 10:25:11 10/17/2024 11:07:58 Delusions of parasitosis 255412549 F22 300693 Her w/u for parasites has been negative. She is currently not ready to deal with this as she feels that something is being missed. She will return next week and we will discuss treatment with aripiprazo le 5 mg daily. [id number] Kamille Nelson MD Main Office [address] [place], [place] [address] [address] 10/25/2024 09:18:05 10/25/2024 10:37:59 [id number] Kamille Nelson MD Main Office [address] [place] [address] [place] [address] 12/02/2024 14:04:57 12/02/2024 15:23:19 Parasitic disease 96886992 B89 237624 She has been on 2 different meds for parasites w/o much help. Her w/u has been negative. She was encouraged to collect anything in her stool that she feels is a parasite. She will f/u with ID Bilateral lower limb edema 125286648 R60.0 190641 Delusions of parasitosis 319682358 F22 469957 Her w/u for parasites has been negative. She has seen both GI and ID and although diagnosed with Crohns no other dx is looking likely. She has agreed to see a mental health provider at least to help with her ability to deal with the sensation of parasites which she is convinced is there but not being diagnosed. She has become extremely anxious and tearful when discussing her symptoms and the lack of dx. She has agreed to see a mental health provider to help her to deal with coping better. Crohn's disease 53743728 K50.919 121560915 She is followed by GI. [id number] Sidney Bean MD Main Office [address] [place] [address] [place] [address] 12/22/2024 15:07:32 12/22/2024 16:14:53 Generalized anxiety disorder 44051017 F41.9 scored low on emilia/phq - see delusions below Parasitic disease 399348 07 B89 329360 She has been on 2 different meds for parasites w/o much help. Her w/u has been negative. She was encouraged to collect anything in her stool that she feels is a parasite. She will f/u with ID 7.25 - pt requests ID eval c specialist in parasite infections --- [facility] Delusions of parasitosis 014842066 F22 233600 Her w/u for parasites has been negative. She has seen both GI and ID and although diagnosed with Crohns no other dx is looking likely. She has agreed to see a mental health provider at least to help with her ability to deal with the sensation of parasites which she is convinced is there but not being diagnosed. She has become extremely anxious and tearful when discussing her symptoms and the lack of dx. She has agreed to see a mental health provider to help her to deal with coping better. 7.25 - pt did not see therapist, scored low on emilia/phq Crohn's disease 42216277 K50.919 899388441 She is followed by GI - started on skryzi - has had 2 injections so far Paresthesia 50378589 R20 .2 80303 see above - trial c low dose gbn [id number] Kamille Nelson MD Main Office [address] [address] [place] [address] 02/01/2025 08:38:50 02/01/2025 14:01:06 [id number] Kamille Nelson MD Main Office [address] [address] [place] [address] 02/07/2025 15:49:31 02/07/2025 16:49:17 Anemia 271623111 D64.9 50020800 Possible ACD from Crohn's disease. She would like to try iron supplement s and we will recheck her labs in 3 months. Calculus o f kidney and ureter 689071152 N20.2 This has been an ongoing and intermitte nt problem over the past 25 years or more. On meds and followed regularly by urology. Has a stent in place and will f/u with Dr Verdin in a couple of days. She has been followed by Dr Matute, nephrology and is now looking for a referral to a different provider since her kidney stone frequency has been increasing instead of decreasing . Crohn's disease 00912696 K50.919 527784334 She is followed by GI. I sent a message to TOÑO Briggs at to let her know that Jazmyn is waiting for dorianio ns before starting the skyrizi. [id number] GITA AMEZQUITA MD Main Office [address] [facility] [place] [address] 04/13/2025 12:45:05 04/13/2025 13:43:00 Calculus of kidney and ureter 590022046 N20.2 - Patient requesting refill of hydrochlor othiazide, also reporting [facility] has closed and needs new referral. Requesting - Requesting referral to [facility] in place of closed practice New daily persistent headache 9384478277 49581 G44.52 395935 - Patient presenting with new daily persistent headaches that are minimally responsive to treatment. No prior history of headaches. No neurologic al deficits reported or present on exam.- Given patient is >50 years old and is taking immunosupp ressant medication , new headaches presents concern for possible mass/malig sushma. Ordering MRI for further evaluation - Pattern and location of headaches could represent cervicogen ic etiology. Ordering X ray of cervical spine to evaluate.- Further evaluation care to be determined based on results of testing. May consider referral to neurology given new onset of headaches and lack of establishe d pattern for patient. Headaches could also be possible attributed to stress and tension in the absence of other more serious etiology. Reviewed signs and symptoms that should prompt seeking emergency medical care. Patient demonstrat es understand ing of plan of care. Health Concerns Section Related Observation LastModified by Organization Detai ls LastModified Time None Recorded Concern Status LastModified by Organization Details LastModified Time None Recorded Advance Directives Directive Y: 11/09/2015 Payers Insurance Date Sequence Insurance Name Policy Number Policy Thompson Covered Member ID Thompson Member ID Guarantor Name 04/13/[address] [place] [address] ([facility] [place] [id number] Anita Langston [id number] Jazmyn Langston Notes Date Note Type Note Provider Name and Address Organization Details Recorded Time 5 text/html ROS as noted in the HPI Her h/o symptoms dates back to late July (3 and 1/2 months ago). Since that time she has been seen in the office by multiple providers on 08/26, 08/30, 09/07, 09/23, 10/17, 10/25 () and today, 12/02. In addition she has been seen by GI and ID and had one [facility] admission in October. Her symptoms started as GI with diarrhea and anal itch. She was initially treated with a steroid cream for external hemorrhoids but this did not help her symptoms. She reports seeing and feeling worms in her anal area and was treated with mebendazole but had a negative pinworm test. Over time she has become convinced that she is infested with parasites that are taking her nutrients and causing her to lose weight. She has had multiple lab studies which have been negative twice for O&P, and negative stool panel. She has also been negative for cyclospora, cryptosporidia, strongyloides and amoeba. She was seen by ID, Dr Lagn who tested her for HIV and this was negative. She was given another course of a different antiparasite, albendazole w/o any effect. She had a colonoscopy done and no worms/ parasites were seen but there was active inflammation c/w Crohns disease. She now feels that the parasites have invaded her legs and has been requesting xrays of her legs. Since xrays would not be helpful we have agreed to bilateral US and in addition she will make an appointment with a mental health provider to help her to deal with the excessive anxiety and depression that this is causing her. Kamille Nelson MD [address] [address], [place], [address], [facility] 12/05/2024 07:50:32 5 text/html ROS as noted in the HPI Her h/o symptoms dates back to late July (3 and 1/2 months ago). Since that time she has been seen in the office by multiple providers on 08/26, 08/30, 09/07, 09/23, 10/17, 10/25 () and today, 12/02. In addition she has been seen by GI and ID and had one [facility] admission in October. Her symptoms started as GI with diarrhea and anal itch. She was initially treated with a steroid cream for external hemorrhoids but this did not help her symptoms. She reports seeing and feeling worms in her anal area and was treated with mebendazole but had a negative pinworm test. Over time she has become convinced that she is infested with parasites that are taking her nutrients and causing her to lose weight. She has had multiple lab studies which have been negative twice for O&P, and negative stool panel. She has also been negative for cyclospora, cryptosporidia, strongyloides and amoeba. She was seen by ID, Dr Lang who tested her for HIV and this was negative. She was given another course of a different antiparasite, albendazole w/o any effect. She had a colonoscopy done and no worms/ parasites were seen but there was active inflammation c/w Crohns disease. She now feels that the parasites have invaded her legs and has been requesting xrays of her legs. Since xrays would not be helpful we have agreed to bilateral US and in addition she will make an appointment with a mental health provider to help her to deal with the excessive anxiety and depression that this is causing her. 7.25 - pt has persistent symptoms as above - carlos paresthesias in legs > rest of bodyrecent stool study negativeseen by ID - rev notescored normal on emilia/phqshe requests another gaurial sena specialist Yovany Pineda PA-C [address] [address], [place], [address], [facility] 12/23/2024 08:09:27 5 text/html Hospitalization Contact RecordReported by PatientHospitalization Contact RecordFor follow up, [facility] date: (please enter in format 'mm/dd/yyyy') (01/29/2025),date of discharge: (please enter in format 'mm/dd/yyyy') (01/31/2025), anddate of contact: (please enter in format 'mm/dd/yyyy') (02/01/2025).Medicare covered inpatient stay? no ELVA with in 48 working hours? yes HCP on file? yes MOLST on file? no Discharge Summary available? yes 54 year old female with long history of recurrent kidney stones presented to [facility] on 01/29/2025 complaining of right flank pain. found to have UTI, 4mm right obstructed stone in right mid ureter. Urology was consulted . PCP Heads UP: During work up patient was found to be anemic . Recommended followup with provider within one week to discuss blood cultures an further work up for anemia . Travel Writer call to patient scheduled with provider for Thursday02/07/2025 at 4 pm. Patient is being closely managed by urology and is scheduled to be seen this week due to hospital admission. Kamille Nelson MD [address], [address], [facility] 02/01/2025 09:04:58 5 text/html Hospitalization Contact RecordReported by PatientHospitalization Contact RecordFor follow up, [facility],admit date: (please enter in format 'mm/dd/yyyy') (01/29/2025),date of discharge: (please enter in format 'mm/dd/yyyy') (01/31/2025), anddate of contact: (please enter in format 'mm/dd/yyyy') (02/01/2025).Medicare covered inpatient stay? noTOC with in 48 working hours? yes HCP on file? yesMOLST on file? noDischarge Summary available? yes 54 year old female with long history of recurrent kidney stones presented to [facility] on 01/29/2025 complaining of right flank pain. She was found to have a UTI and a 4mm right obstructed stone in right mid ureter. Urology was consulted and a stent was placed. She has a f/o this week to have the stent removed. She has also been seeing renal and receiving meds from them to help reduce her stone burden but this hasn't been helping. She is requesting a referral to a different cot assembler. During work up patient was found to be anemic . This is new since her H/H from July was normal. She denies any visible blood loss but recently had the dx of Crohn's disease. She was prescribed skyrizi but hasn't started it because she is waiting for instructions from GI. Kamille Nelson MD [address] [address], [place], [address], [facility] 02/07/2025 17:18:57 5 text/html HeadacheReported by PatientHPIFor quality, patient reportsaching. For associated symptoms, patient reportsphotophobiabut reportsno vomiting,tearing/watery eyes (no),no confusion,no slurred speech,no double vision,normal feeling/sensation,no motor paralysis,no dizziness,no sleep disturbances,no nosebleeds,no hoarseness,no sore throat, andno hearing loss(denies tinnitus). For location, patient reportsbilateral,including neck,occipital,frontal, andband around head. For duration, patient reportsintermittent(timing is variable. no clear trigger. does not wake up with headaches.). For onset/timing, patient reportsoccur daily. For context, patient reportsnot related to trauma (no injury to head, neck, spine)andpoor sleep (very light sleeper, has been like this for a long time since having children)(no history of headaches.no history of hypertension.no increased stress, changes in stress levels.). For alleviating factors, (has been taking ibuprofen and sometimes tylenol with temporary relief. takes medications 2x/day.).ROS as noted in the HPI Jazmyn is a 54 year old F with PMH of EMILIA, HLD, prediabetes, vit D deficiency, GERD, Crohn's, renal calculus, Sjogren's syndrome, polyarthralgia, and steatotic liver disease. She is presenting today with new headaches for the past month. HARSHAL CALDWELL, MARTIN- [address] [address], [place], [address], [facility] 04/13/2025 14:15:16 OBGyn Episode No OBEpisode recorded.
--- OUTSIDE RECORDS SUMMARY | 2025-04-21 12:40 | XMS_ITS | Encounter Summary ---
Author Organization [facility], Address [address] [place] [address] Phone Care Team Providers Care Diamond Blender Name Role Phone Zion Nelson MD Primary Care Provider +1- [phone] Encounter Details Date Type Department Care Team (Late st Contact Info) Description 08/22/2021 Documentation Only [facility], [address] [place] [address] Aki Matute MD [address] [place] [address] Social History Tobacco Use Types Packs/Day Years [...] on filedocumented in this encounter Care Teams Diamond Blender Relationship Specialty Start Date End Date Zion Nelson MD [address] [facility] [address] [place], [place] PCP - General Internal Medicine 05/16/20 documented as of this encounter
--- OUTSIDE RECORDS SUMMARY | 2025-04-21 12:40 | XMS_ITS | Encounter Summary ---
Author Organization [employer] Address [address] [place] [address] Care Team Providers Care Car Unloader Name Role Phone Zion Nelson MD Primary Care Provider +1- [phone] Encounter Details Date Type Department Care Team (Late Contact Info) Description 12/09/2024 Lab Requisition [facility] - Main Lab [address] [facility] [place] [phone] [place] [facility] [address] [place] [address] Urinary tract infection, site not specified; Calculus of kidney Social History Tobacco Use Types Packs/Day Years Used Date Smoking Tobacco: Never Alcohol Use Standard Drinks/Week Comments Not Currently [...] Encounters Date Type Department Care Team (Late Contact Info) Description 05/27/2025 8:15 AM EST Appointment [facility] [address] [place] [address] documented as of this encounter Procedures Procedure Name Priority Date/Time Associated Diagnosis Comments CULTURE URINE Routine 12/09/2024 12:00 AM EDT Urinary tract infection, site not specified Calculus of kidney documented in this encounter Results * Culture urine (12/09/2024 12:00 AM EDT) Culture, Urine 10,000-49,000 CFU/mL Mixed urogenital perla, no uropathogens present. Suggest repeat specimen if clinically indicated. 12/10/2024 11:06 AM EDT [facility] Urine Urine specimen obtained by clean catch procedure / Unknown 12/09/2024 12/09/2024 1:14 PM EDT [facility] MICROBIOLOGY - [facility] VALENCIA [place]AL[place] Final Result [facility] [address] [place] [address], documented in this encounter Visit Diagnoses Diagnosis Urinary tract infection, site not specified Calculus of kidney Encounter for screening mammogram for breast cancer documented in this encounter Additional Health Concerns Infection Onset Date Last Indicated Resolved Time Gastrointestinal Rule-Out 04/05/2025 04/05/2025 10:30 AM EDT C. difficile Rule-Out 04/05/2025 04/05/20252024 11:22 AM EDT documented as of this encounter Care Teams Car Unloader Relationship Specialty Start Date End Date Zion Nelson MD [address] PCP - General Internal Medicine 01/20/25 documented as of this encounter
--- OUTSIDE RECORDS SUMMARY | 2025-04-21 12:40 | XMS_ITS | Encounter Summary ---
Author Organization [employer] Address [address] [place] [address] Care Team Providers Care Sales And In Home Delivery Specialist Name Role Phone Zion Neslon MD Primary Care Provider +1- [phone] Encounter Details Date Type Department Care Team (Latest Contact Info) Description 10/17/2024 Lab Requisition [facility] - Main Lab [address] [place] [phone] Radhika Lang MD [address] [place] [address] Noninfective gastroenteritis and colitis, unspecified Social History Tobacco Use Types Packs/Day Years [...] AM EST Appointment [facility] [address] [place] [address] documented as of this encounter Procedures Procedure Name Priority Date/Time Associated Diagnosis Comments HELICOBACTER PYLORI BREATH TEST Routine 10/17/2024 12:50 PM EDT Noninfective gastroenteritis and colitis, unspecified documented in this encounter Results * Helicobacter pylori breath test (10/17/2024 12:50 PM EDT) H Pylori Breath Test Negative Negative LAB CHEMISTRY METHOD 10/18/2024 6:[address] [facility] Breath Oral cavity structure / Unknown 10/17/2024 12:50 PM EDT 10/17/2024 6:26 PM EDT us Radhika Lang MD LAB BODY FLUIDS AND STOOL S ORDERABLES Final Result [facility] [address] [place] [address], documented in this encounter Visit Diagnoses Diagnosis Noninfective gastroenteritis and colitis, unspecified Encounter for screening mammogram for breast cancer documented in this encounter Additional Health Concerns Infection Onset Date Last Indicated Resolved Time Gastrointestinal Rule-Out 04/05/2025 04/05/2025 10:30 AM EDT C. difficile Rule-Out 04/05/2025 04/05/20252024 11:22 AM EDT documented as of this encounter Care Teams Sales And In Home Delivery Specialist Relationship Specialty Start Date End Date Zion Nelson MD [address] PCP - General Internal Medicine 01/20/25 documented as of this encounter
--- OUTSIDE RECORDS SUMMARY | 2025-04-21 12:40 | XMS_ITS | Encounter Summary ---
Author Organization [facility] Address [address] [place] [address] Phone Care Team Providers Care Surtass Analyst Name Role Phone Zion Nelson MD Primary Care Provider +1- [phone] Encounter Details Date Type Department Care Team ([facility] st Contact Info) Description 07/21/2023 Documentation Only [facility], [address] [place] [address] Laura Dale [address] [place] [phone] Social History Tobacco Use Types Packs/Day Years [...] on filedocumented in this encounter Care Teams Surtass Analyst Relationship Specialty Start Date End Date Zion Nelson MD [address] PCP - General Internal Medicine 05/16/20 documented as of this encounter
--- OUTSIDE RECORDS SUMMARY | 2025-04-21 12:40 | XMS_ITS | Clinical Summary ---
Author Organization [facility] Address [address] [place] [address] Phone Care Team Providers Care Group Captain Name Role Phone Zion Nelson MD Primary Care Provid er Encounters Date Type Department Care Team Description 04/18/2025 Transcribe Orders [facility] Infectious Diseases [address] [place] [address] Zion Nelson MD Abnormal microbiological findings in specimens from digestive organs and abdominal cavity (Primary Dx) from Last 3 Months Social History Tobacco Use Types Packs/Day Years [...] on file Sexual Orientation Not on file Plan of Treatment Upcoming Encounters Date Type Department Care Team (Late st Contact Info) Description 07/13/2025 8:00 AM EST Office Visit Catie Shannon [facility] Infectious Diseases [address] [place] [address] William Morris MD [address] [facility], 2nd [place] [address] Health Maintenance Due Date Last Done Comments Adult Td,Tdap Booster 1972 LIPID PANEL 1972 DEPRESSION SCREENING 1984 SMOKING Hx and SMOKELESS TOB ACCO SCREENING 1985 HEPATITIS C SCREENING 1990 HIV ONE-TIME SCREENING (18-6 5 YEARS) 1990 PAP SMEAR 1993 MAMMOGRAM 2012 COLOGUARD 2017 COLONOSCOPY 2017 COLORECTAL CANCER SCREENING 2017 FIT TEST 2017 FOBT 2017 SIGMOIDOSCOPY 2017 VIRTUAL COLONOSCOPY 2017 PNEUMOCOCCAL VACCINES (50+ y ears) (1 of 1 - PCV) 2022 ZOSTER VACCINES (1 of 2) 2022 INFLUENZA VACCINE (#1) 2025 COVID-19 VACCINE (1 - 2024-2 6 season) 2025 RSV VACCINE (1 - 1-dose 75+ series) 12/28/2047 HEPATITIS A VACCINES Aged Out No long er eligible based on patient's age to complete this topic HIB VACCINES Aged Out No longer eligi ble based on patient's age to complete this topic MENINGOCOCCAL VACCINES (ACWY) Aged Out No longer eligible based on patient's age to complete this topic MENINGOCOCCAL VACCINES (B) Aged Out N o longer eligible based on patient's age to complete this topic Medical Devices Not on file [place] [address] [place] [address] HMO O O HMO HMO [facility] [place] Address: [place] [address] Care Teams Group Captain Relationship Specialty Start Date End Date Zion Nelson MD [address] [address] PCP - General Pediatrics 04/13/25 Additional Source Comments The information contained in this document represents components of the legal health record. It is not the complete legal health record.[facility]
--- OUTSIDE RECORDS SUMMARY | 2025-04-21 12:40 | XMS_ITS | Encounter Summary ---
Author Organization [facility], Address [address] [place] [address] Phone Care Team Providers Care Skimmer Scoop Operator Name Role Phone Zion Nelson MD Primary Care Provider +1- [phone] Encounter Details Date Type Department Care Team (Late st Contact Info) Description 08/22/2021 Documentation Only [facility], [address] [place] [address] Aki Matute MD [address] [place] [address] Social History Tobacco Use Types Packs/Day Years [...] on filedocumented in this encounter Care Teams Skimmer Scoop Operator Relationship Specialty Start Date End Date Zion Nelson MD [address] [facility] [address] [place], [place] PCP - General Internal Medicine 05/16/20 documented as of this encounter
--- OUTSIDE RECORDS SUMMARY | 2025-04-21 12:40 | XMS_ITS | Encounter Summary ---
Author Organization [facility], Address [address] [place] [address] Phone Care Team Providers Care Cheese Specialist Name Role Phone Zion Nelson MD Primary Care Provider +1- [phone] Encounter Details Date Type Department Care Team (Late st Contact Info) Description 04/17/2022 Documentation Only [facility], [address] [place] [address] Aki Matute MD [address] [facility] [place] [address] Social History Tobacco Use Types Packs/Day Years [...] on filedocumented in this encounter Care Teams Cheese Specialist Relationship Specialty Start Date End Date Zion Nelson MD 36[address] [facility][1] [address] [place], [place] PCP - General Internal Medicine 05/16/20 documented as of this encounter
--- OUTSIDE RECORDS SUMMARY | 2025-04-21 12:40 | XMS_ITS | Encounter Summary ---
Author Organization [facility], Address [address] [place] [address] Phone Care Team Providers Care Motor Vehicle Assembly Supervisor Name Role Phone Zion Nelson MD Primary Care Provider +1- [phone] Encounter Details Date Type Department Care Team (Late st Contact Info) Description 01/13/2023 Documentation Only [facility], [address] [facility] [place] [address] Aki Matute MD [address] [facility] [place] [address] Social History Tobacco Use Types Packs/Day Years [...] on filedocumented in this encounter Care Teams Motor Vehicle Assembly Supervisor Relationship Specialty Start Date End Date Zion Nelson MD [address] [facility] [address] [place], [place] PCP - General Internal Medicine 05/16/20 documented as of this encounter
--- OUTSIDE RECORDS SUMMARY | 2025-04-21 12:40 | XMS_ITS | Clinical Summary ---
Author Organization [facility] Address [address] [place] [phone] Phone Care Team Providers Care Internal Combustion Engine Subassembler Name Role Phone Zion Nelson MD Primary Care Provider +1- [phone] Allergies No known active allergies Medications Thiamine HCl (vitamin B-1) 250 MG tablet Take 250 mg by mouth 1 (one) time each day Active ondansetron (ZOFRAN) 4 MG tablet TAKE 1 TABLET BY MOUTH EVERY 8 HOURS NEEDED FOR NAUSEA/VOMIT ING 12/19/2020 Active Cholecalciferol (Vitamin D3) 25 MCG (1000 UT) capsule Take by mouth Active cholestyramine (QUESTRAN) 4 g packet Take 1 packet by mouth in the morning and 1 packet at noon and 1 packet in the evening. Take with meals. Active famotidine (Pepcid) 20 MG tablet Take 20 mg by mouth in the morning and 20 mg in the evening. Active omeprazole (PriLOSEC) [address] capsule Take 40 mg by mouth 1 (one) time each day Do not crush or chew. 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 Resolved Problems Problem Noted Date Diagnosed Date Resolved Date Gastroesophageal reflux disease 05/27/2020 05/27/2020 Immunizations Immunization Administration Dates Next Due Influenza (IM) Preservative Free 03/28/2015 Influenza, MDCK, PF, Quadrivalent 03/08/2020 Influenza, Quadrivalent, Pre servative Free 04/16/2022,04/10/2021,04/05/2018,2015 Influenza, Quadrivalent, Wit h Preservative 04/07/2019 Influenza, Unspecified 07/11/2014 Moderna SARS-COV-2 05/18/2021,08/16/2020, 021 Tdap 04/07/2019,10/16/2014 Social History Tobacco Use Types Packs/Day Years Used Date Smoking Tobacco: Never Smokeless Tobacco: Never Comments Unknown Sex and Gender Information Value Date Recorded Sex Assigned at Not on file Legal Sex Female 2:55 PM EST Gender Identity Not on file Sexual Orientation Not on file Plan of Treatment Health Maintenance Due Date Last Done Comments Breast Cancer Screening 1972 Hepatitis B Vaccine (1 of 3 - 19+ 3-dose series) 12/28/1991 Pneumococcal Vaccine: 50+ Ye ars (1 of 2 - PCV) 12/28/1991 Colorectal Cancer Screening: Annual FOBT 2021 Colorectal Cancer Screening: Colonoscopy 2021 Colorectal Cancer Screening: Sigmoidoscopy 2021 Influenza Vaccine (#1) 2025 , 07/16/2023, 04/16/2022, Additional history exists Insurance Care Teams Internal Combustion Engine Subassembler Relationship Specialty Start Date End Date Zion Nelson MD [address] [facility] [address] [place], [place] PCP - General Internal Medicine 05/16/20
--- OUTSIDE RECORDS SUMMARY | 2025-04-21 12:40 | XMS_ITS | Encounter Summary ---
Author Organization [facility] Address [address] [place] [address] Care Team Providers Care Panelbeater Name Role Phone Zion Nelson MD Primary Care Provider +1- [phone] Encounter Details Date Type Department Care Team (Late Contact Info) Description 04/21/2025 Telephone Infectious Disease [address] [address] Mya Carty RN Social History Tobacco Use Types Packs/Day Years [...] on file documented as of this encounter Progress Notes * Mya Carty RN - 04/21/2025 9:57 AM EDT A referral was received from Dr. Lang's office for this patient, however, Dr. Meza already had seen this patient for the same issue on 12/14/2024 as a second opinion. I spoke with staff at Dr. Lang's office and they were unaware that she had already been evaluated x 2 for the same issue. Referral cancelled. documented in this encounter Plan of Treatment Upcoming Encounters Date Type Department Care Team (Late Contact Info) Description 05/27/2025 8:15 AM EST Appointment [facility] at [address] [address] documented as of this encounter Visit Diagnoses Not on filedocumented in this encounter Care Teams Panelbeater Relationship Specialty Start Date End Date Zion Nelson MD [address] PCP - General Internal Medicine 01/20/25 documented as of this encounter
== END 2025-04-21 11:49 | disposition home or self-care (01) ==
LOC: HO.HKAS 11:08
PROVIDERS: PCP Internal Medicine; Visit Provider Internal Medicine Hypertension Specialist
DX: N20.0 Calculus of kidney (principal)
CPT/HCPCS: 99204

== ENCOUNTER 2025-06-07 12:13 | Outpatient (AMB) | payer OTHER, SELFPAY ==
[2025-06-07 12:09] VITALS: BP 130/72; PULSE 95; O2SAT 99; BMI 28.1
--- NOTE | 2025-06-07 12:09 | HO.NEPHOV_ITS ---
Vital Signs 06/07/25 12:09 Height 5 ft 6 in Weight 174 lb BMI 28.1 BP 130/72 Blood Pressure Location Lt brachial Position Sitting Pulse 95 Pulse Source Pulse Oximeter Pulse Oximetry (%) 99 Oxygen Delivery Method Room Air Intake Visit Reasons: 3-4wks Director Clinical Information Services Required: No Accompanied by: Self / Same As Patient Allergies No Known Allergies Allergy (Verified 06/07/25 12:18) Medication List - Last Reconciled 06/07/25 by Bautista Inman MD cholecalciferol (vitamin D3) 25 mcg PO DAILY gabapentin 100 mg PO TID hydrochlorothiazide 25 mg PO DAILY omeprazole 40 mg PO DAILY potassium citrate ER 10 mEq PO TID risankizumab-rzaa (Skyrizi) mg subcut .2xmonthly HPI Comments Details: History of Present Illness The patient is a 54 year old female presenting for follow-up of nephrolithiasis. She was recently hospitalized and had a stent placed for a 3 mm stone in her lef t mid-ureter that could not be removed at the time. She has a history of kidney stones, which usually occur in the right kidney, but this obstructing stone was on the left. Imaging revealed multiple additional small, nonobstructive stones bilaterally. Due to the stent, she experiences discomfort and hematuria upon urination. Her stent removal is scheduled for June 21. Her current medications for stone prevention include potassium citrate and hydrochlorothiazide, and she is careful with her salt intake. Blood work from her recent hospitalization on the showed a low potassium level. Her medical history is significant for Crohn's disease, for which she is taking Skyrizi, and diverticulitis. Results - Labs: - Serum potassium was low during hospitalization on the . - Imaging: - A 3 mm stone was identified in the left mid-ureter. - Multiple additional non-obstructive stones are present bilaterally. [facility] Medical History (Updated 06/07/25 @ 12:18 by ALEXANDRA Almaraz) History of stent insertion of renal artery (~05/2025) Kidney stone UTI (urinary tract infection) Crohn's disease Sepsis Hydroureteronephrosis Physical Exam Exam Exam: Physical Exam General: Awake. Comfortable. HENT: Neck supple. Mucosa moist. Pulmonary: Lungs aeration equal. No rales. Cardiology: Heart S1-S2 heard. No gallop. Abdomen: Soft. Non tender. Bowel sounds normal. History of Crohn's disease and diverticulitis on the left side of the colon. Neurologic: No involuntary movements. No myoclonus. Extremities: No edema. No rash. Vital Signs: Last Vital Signs Pulse 95 06/07/25 12:09 BP 130/72 06/07/25 12:09 Pulse Ox 99 06/07/25 12:09 Oxygen Delivery Method Room Air 06/07/25 12:09 BMI result Body Mass Index 28.1 Assessment & Plan Assessment & Plan (1) Kidney stone: Code(s): N20.0 - Calculus of kidney Category: Medical Plan Plan 1. Nephrolithiasis - The patient has bilateral non-obstructive renal calculi and a left mid- ureteral stone with a stent in place. - The recent finding of hypokalemia while on potassium citrate suggests the current dosage is insufficient. - The dose of potassium citrate will be increased; a new prescription for 15 mEq tablets will be sent to her pharmacy, to be taken as two tablets twice a day. - She will continue taking hydrochlorothiazide, maintain a low-salt diet, and ensure high fluid intake. - She will proceed with her scheduled stent removal on June 21. - A 24-hour urine collection is to be completed in June after the stent is removed. - Follow-up is scheduled for July to discuss the test results. 2. Crohn's Disease - The patient expressed that she feels her current medication, Skyrizi, is not working effectively for her Crohn's disease. - She has a follow-up colonoscopy scheduled in August to re-evaluate the condition. - No changes were made to her gastroenterological plan during this visit. Medications: Changed From potassium citrate ER 30 mEq PO BID To potassium citrate ER 30 mEq (2 x 15 mEq) PO BID 60 tabs 3RF Coding Level of Care Code Est Pt Level 4 (74120) Diagnoses Kidney stone N20.0
== END 2025-06-07 12:35 | disposition home or self-care (01) ==
LOC: HO.HKAS 12:13
PROVIDERS: PCP Internal Medicine; Visit Provider Internal Medicine Hypertension Specialist
DX: N20.0 Calculus of kidney (principal)
CPT/HCPCS: 99214